=== PATIENT | female | born 1985 | race American Indian/Alaskan Native ===

== ENCOUNTER → 2021-12-18 00:47 | Outpatient (CLI) | payer BC, SELFPAY ==
[2021-12-18 12:03] LABS: SARS-CoV-2 RNA PCR Negative
== END ==
PROVIDERS: Anesthesiology; Visit Provider Obstetrics & Gynecology
DX: Z01.812 Encounter for preprocedural laboratory examination (principal); Z20.822 Contact with and (suspected) exposure to COVID-19
CPT/HCPCS: C9803; U0003; U0005

== ENCOUNTER 2021-12-21 01:18 | Day surgery (SDC) | payer BC, SELFPAY ==
[2021-12-17 16:56] VITALS: BMI 21.4
--- NOTE | 2021-12-17 17:05 | SUR.PREOP ---
Report to the Outpatient Waiting Room, entrance under the green pavilion located off [facility], at time __0930 on date 12/21/21_. OR Time: . - You and your visitor will be asked a series of questions to screen for COVID 19 for your protection. - A mask is required within the hospital. Preoperative COVID Testing Requirements: No COVID Test needed if: (proof is required; if not received patient will have Rapid Test prior to entry) - Patient has received COVID Vaccine at least 14 days prior to procedure date or - Patient has positive COVID test result within last 90 days of surgery date. COVID Test needed if above criteria is not met If not COVID vaccinated a COVID test must be conducted within 72 hours of surgery and patient is asked to isolate self from time of testing until procedure. You will go to the [facility] for your COVID testing. The [facility] site is located at the corner of [address] [facility]. You will only be called if COVID results are positive and your surgeon may reschedule your elective surgery date. Patients may have clear liquids (water, carbonated beverages, clear teas, apple juice) until 3 hours prior to surgery with a maximum of 20 ounces. - No food from midnight until time of surgery - Infants may have breast milk until 4 hours before surgery, formula 6 hours prior to surgery. - Children will be allowed to drink immediately following surgery. If applicable, please bring a bottle or sippy cup to assist with drinking. Juice, water, soda, and popsicles are readily available. For infants on formula, please bring formula the day of surgery. Pacifiers are allowed. Take the following medications with a SIP of water the morning of surgery: ___n/a Medications to discontinue per physician ____hold vitamins 3 days prior Date to take last dose Please no make-up, nail sao tomean, hairspray, perfume, deodorant, or body powder the day of surgery. No jewelry (including any body piercings) or valuables the day of surgery, leave them at home. Please take a shower or bath the night before, or the morning of, surgery with an antibacterial soap. Wear comfortable, loose fitting clothing. Children are encouraged to wear pajamas. - Jewelry must be removed prior to entering the operating room. Rings and piercings that are not removed may be cut off. - The hospital will not accept responsibility for valuables. - Please leave all valuables, including medications, at home the day of surgery. If you are going home after surgery, a licensed milk pickup truck driver must drive you home. - NO public transportation without another adult. - We recommend that an adult stay with you for 24 hours following discharge. - We also recommend that you do not drive, make important decision, drink alcoholic beverages, or take any drugs that were not prescribed by your health care provider for at least 24 hours after your discharge time. For Pediatric surgeries, we recommend two adults accompany the child home (only one inside the building at this time). One visitor will be allowed to accompany the patient into the hospital. Patients visitor will be instructed to remain with patient at all times or leave the building. We will allow the visitor to come back to the postoperative area when patient is ready. Follow any additional instructions given to you from your surgeon. Telephone instructions given to _patient and asked if any additional questions and then verbalized understanding. Patient advised to call surgeon office or pre surgery nurse liaison [phone] if any additional questions.
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
--- NOTE | 2021-12-20 13:05 | WPDANESEPPF ---
Anes - Initial Pre Proc Eval Procedure: Operation Date: 12/21/21 11:30 Proposed Procedures p Suction Dilation and Curettage - Romie Stephenson MD Date/Time: 12/20/21 13:05 Surgeon: Romie tSephenson MD Pre Op Diagnosis: Retained Product Patient Data Age: 36 Gender: F Height: 1.65 m Weight: 58.51 kg Allergies Allergy/AdvReac Type Severity Reaction Status Date / Time No Known Allergies Allergy Verified 12/21/21 09:49 Home Medications Medication Instructions Recorded Confirmed Type calcium carbonate-vitamin D3 1 tablet PO DAILY 12/17/21 12/21/21 History [Calcium with Vitamin D] vitamin B complex [B 1 tablet PO DAILY 12/17/21 12/21/21 History Complex-Vitamin B12] hydrocodone-acetaminophen 1 tablet PO Q4H PRN #20 tablet 12/21/21 Rx Patient hx anesthesia problems: none Family hx anesthesia problems: none Results Review: All pre-operative results and documents have been reviewed as part of the pre-operative evaluation. [facility] Social History Social History Smoking status: Never smoker Substance use type: does not use Living arrangements: with family Anes - Eval Final PreProcedure Day of Procedure 12/20/21 13:05 Patient weight: normal Heart: regular rate and rhythm Lungs: clear to auscultation and normal air movement Airway: Mallampati scale class 1 Neurological: alert and oriented Last oral intake: >/= 8 hours ASA classification: I Emergent: no Anesthetic plan: proceed Anesthesia type and monitoring: general GIVS and standard monitoring Results Review: All pre-operative results and documents have been reviewed as part of the pre-operative evaluation. Informed Consent: The patient's anesthetic plan and its attendant risks and benefits were discussed with the patient/family/POA. Questions were solicited and answers provided to the satisfaction of the patient/family/POA.
--- NOTE | 2021-12-21 07:23 | WPDHPUPDATE1 ---
History and Physical Update Update Date/Time: 12/21/21 07:23 History and Physical has been reviewed, including an updated exam of the patient. There are NO changes in the patient's condition. Risks, benefits, and alternatives have been discussed and questions answered. Patient agrees to proceed with procedure.
[2021-12-21 09:58] VITALS: BP 106/70; PULSE 72; RESP 16; TEMP 36.8; O2SAT 100
[2021-12-21] MEDS: ACETAMINOPHEN 500 MG TABLET 1000 MG PO (10:02)
[2021-12-21] MEDS: LACTATED RINGERS 1,000 ML 30 ML IV CONT (10:13)
[2021-12-21] MEDS: KETOROLAC 30 MG/ML VIAL (*BKC) IV PUSH (11:45)
[2021-12-21] MEDS: LIDOCAINE HCL 1% PF 30 ML VIAL 10 ML INFILTRATE (11:46)
--- NOTE | 2021-12-21 11:50 | W.PM.PROC2 ---
Procedure Note - Detailed Date of Procedure 12/21/21 Pre-op Diagnosis Retained Product Post-op Diagnosis Same Procedure Performed Suction dilatation curettage Surgeon Romie Stephenson MD Anesthesia MAC and Local Indications This is a 36-year-old with first-trimester incomplete AV Findings Uterus sounded to 10cm. Tissue consistent with retained products of conception were noted Description of Procedure Patient was prepped draped in the normal sterile fashion placed in the dorsal lithotomy position. Under excellent IV sedation weighted speculum placed in posterior fornix vagina. Anterior lip of the cervix grasped with single-tooth 2.5cc of% xylocaine anesthesia placed at 2, 4, 8, 10:00 a.m. of the cervix. The uterus sounded to 10cm. Serial dilatation with fragmented dilators performed followed by passage of the 9. Suction curette removing a moderate amount of chunky tissue. When a good grating sound was heard, no further tissue could be removed. The instruments removed and accounted for. The patient was awakened and went to recovery in satisfactory condition. All sponge, needle, instrument counts were correct. There were no immediate complications noted Estimated Blood Loss 25 Drains No Packing No Pathology Yes Complications No immediate complications Condition Stable Disposition PACU
[2021-12-21 11:52] VITALS: BP 82/41; PULSE 58; RESP 12; O2SAT 95
[2021-12-21 12:20] VITALS: BP 87/58; PULSE 47; RESP 16; O2SAT 100
[2021-12-21 12:50] VITALS: BP 104/59; PULSE 49; RESP 16
[2021-12-21] MEDS: oxyCODONE HCL (*CRX) 5 MG TAB IR PO (13:02)
== END 2021-12-21 13:00 | disposition home or self-care (01) ==
PROVIDERS: Visit Provider Obstetrics & Gynecology
PROC: (CPT 59812; principal; 2021-12-21 11:30)
DX: O03.4 Incomplete spontaneous abortion without complication (principal)
CPT/HCPCS: 59812; 88305; A9270; J1100; J1885; J2250; J2405; J2704; J3010; J7120

== ENCOUNTER 2023-08-20 08:54 | Inpatient (IN) | payer BC, SELFPAY ==
[2023-08-20] VITALS (198 sets, daily range): BP systolic 90–135; BP diastolic 54–86; PULSE 66–121; RESP 16–18; TEMP 36.3–36.8; O2SAT 95–100; BMI 26.4
--- NOTE | 2023-08-20 08:47 | PM.IMHP ---
H&P: HPI History of Present Illness Date/Time: 08/20/23 08:47 Chief Complaint: Induction of labor at term Narrative: this is a 38-year-old 4 para 0030 whose last menstrual period was 11/18/2022, EDC is 08/23/2023, confirmed an week ultrasound who presents at 39 weeks gestation for induction of labor. She has history of poor outcome with 3 previous miscarriages this appears to be uncomplicated short of an abnormal 1hour diabetic test with the 3hour [facility] Family History Family History Mother Diabetes mellitus Chronic obstructive pulmonary disease Social History Social History Smoking status: Never smoker Substance use: never Substance use type: does not use Living arrangements: with family Spiritual care concerns: Yes (no blood) Meds Home Medications and Allergies Home Medications Medication Instructions Recorded Confirmed Type vits no.126-ferrous fum 1 tablet PO DAILY 07/29/23 07/29/23 History 28 mg iron-folic acid 800 mcg tablet (Classic ) Allergies Allergy/AdvReac Type Severity Reaction Status Date / Time No Known Allergies Allergy Verified 07/29/23 15:20 Exam Const: General: cooperative, healthy appearing and comfortable Nutritional Appearance: average body habitus Orientation/consciousness: oriented to person, oriented to place and oriented to time Resp: Effort & Inspection: normal respiratory effort Cardio: Rate: regular rate Rhythm: regular rhythm Heart sounds: S1 normal heart sound present and S2 normal heart sound present GI: Inspection: normal to inspection ( gravid soft uterus) : External Female Exam: normal external appearance Speculum Exam - Vagina: normal appearance of the vagina Speculum Exam - Cervix: normal appearance of the cervix ( 2/50%/ -2) Assessment and Plan Assessment and plan (1) Term : Code(s): Z34.90 - Encounter for supervision of normal , unspecified, unspecified trimester Status: Acute (2) History of poor outcome: Code(s): Z87.59 - Personal history of other complications of , childbirth and the puerperium Status: Acute Plan medical induction of labor. Spontaneous vaginal delivery is expected. She is an epidural candidate
[2023-08-20 09:28] LABS: Basophils Absolute Auto 0.1 K/mm3 (0.0-0.1); Basophils Percent Auto 0.4 % (0.2-1.2); Eosinophils Absolute Auto 0.2 K/mm3 (0-0.3); Eosinophils Percent Auto 1.8 % (0-4.4); Hematocrit 33.5 % (37.0-47.0); Hemoglobin 10.7 g/dL (12.0-15.0); Immature Granulocyte Absolute 0.25 K/mm3 (0.00-0.031); Lymphocytes Absolute Auto 1.96 K/mm3 (0.9-3.2); Lymphocytes Percent Auto 15.8 % (18.3-44.2); Mean Corpuscular HGB Conc 31.9 g/dl (32-36); Mean Corpuscular Hemoglobin 28.9 pg (26-34); Mean Corpuscular Volume 90.5 fl (80-100); Mean Platelet Volume 10.8 fl (7.4-10.4); Monocytes Percent Auto 7.7 % (2.6-8.5); Neutrophils Percent Auto 72.3 % (45.5-73.1); Platelet Count Result 238 k/mm3 (150-375); Red Cell Distribution Width 13.2 % (11.5-14.5); White Blood Count 12.4 K/mm3 (4.5-10.0)
[2023-08-20] MEDS: LACTATED RINGERS 1,000 ML 125 ML IV CONT ×3 (09:53→23:00)
[2023-08-20] MEDS: OXYTOCIN 30 UNITS/NS 500 ML 30 UNITS/500 ML BAG 6 UNITS IV CONT (09:53)
--- NOTE | 2023-08-20 09:53 | LDADM ---
This patient, Anthony Quintanilla, was admitted to Labor/Delivery/Recovery 107 on 08/20/23 at 08:54. Plans for labor, pain management and were discussed with patient. Patient/family oriented to hospital policies and general routines including ID bracelet, bed and alarms, visiting hours, pain management, procedures, bathroom and other care routines, personal items, smoking policy, room service/diet and guest tray routines, infant security routines, and visiting hours. Patient/Family are encouraged to report perceived risks to care and to ask questions if they do not understand what they are told or what they should do. See [facility]BIX for further documentation.
[2023-08-20 12:09] LABS: Rapid Plasma Reagin Non-Reactive (NonReactive)
--- NOTE | 2023-08-20 14:09 | WPDANESEPP ---
Anes - Eval Pre Procedure Procedure: Labor Epidural Date/Time: 08/20/23 14:09 Surgeon: Gian Preop Diagnosis: Labor Pain Pre Op Diagnosis: IOL Patient Data Age: 38 Gender: F Height: 1.65 m Weight: 72.2 kg Last Vital Signs Temp 36.4 C 08/20/23 13:02 Pulse 87 08/20/23 14:00 Resp 16 08/20/23 13:02 BP 115/66 08/20/23 14:00 Pulse Ox 100 08/20/23 14:06 O2 Del Method Room Air 08/20/23 09:53 Allergies Allergy/AdvReac Type Severity Reaction Status Date / Time No Known Allergies Allergy Verified 08/20/23 09:27 Home Medications Medication Instructions Recorded Confirmed Type vits no.126-ferrous fum 1 tablet PO DAILY 07/29/23 08/20/23 History 28 mg iron-folic acid 800 mcg tablet (Classic ) Laboratory Tests 08/20/23 09:15 WBC 12.4 H K/mm3 (4.5-10.0) RBC 3.70 L M/mm3 (4.2-5.4) Hgb 10.7 L g/dL (12.0-15.0) Hct 33.5 L % (37.0-47.0) MCV 90.5 fl (80-100) MCH 28.9 pg (26-34) MCHC 31.9 L g/dl (32-36) RDW 13.2 % (11.5-14.5) Plt Count 238 k/mm3 (150-375) MPV 10.8 H fl (7.4-10.4) Immature Gran % (Auto) 2.0 H % (0-0.5) Neut % (Auto) 72.3 % (45.5-73.1) Lymph % (Auto) 15.8 L % (18.3-44.2) [place] % (Auto) 7.7 % (2.6-8.5) Eos % (Auto) 1.8 % (0-4.4) Baso % (Auto) 0.4 % (0.2-1.2) Lymph # (Auto) 1.96 K/mm3 (0.9-3.2) [place] # (Auto) 1.0 H K/mm3 (0.1-0.6) Eos # (Auto) 0.2 K/mm3 (0-0.3) Baso # (Auto) 0.1 K/mm3 (0.0-0.1) Abs Immat Gran (auto) 0.25 H K/mm3 (0.00-0.031) Absolute Neuts (auto) 9.0 H K/mm3 (1.3-6.7) Absolute Nucleated RBC 0.0 K/mm3 (0.0-0.012) Nucleated RBC % 0.0 % (0.0-0.2) RPR Non-reactive (NonReactive) Blood Type A Positive Antibody Screen Negative Patient hx anesthesia problems: none Family hx anesthesia problems: none Results Review: All pre-operative results and documents have been reviewed as part of the pre-operative evaluation. [facility] Family History Family History Mother Diabetes mellitus Chronic obstructive pulmonary disease Social History Social History Smoking status: Never smoker Second hand tobacco smoke exposure: No Substance use: never Substance use type: does not use Do You Feel Safe in your Home?: Yes Lack of Transportation: No Lack of Food: Never True Current Housing: I Have Housing Concerned About Future Housing: No Difficulty Paying Gas/Electric Bills: No Difficulty Paying for Meds: No Currently Unemployed: No Education: High School Diploma/GED Difficulty w/ Childcare or Family Care: No Living arrangements: with family Spiritual care concerns: Yes (no blood) Exam Day of Procedure 08/20/23 14:09 Patient weight: normal Heart: regular rate and rhythm Lungs: normal air movement Airway: Mallampati scale Neurological: alert and oriented
--- NOTE | 2023-08-20 16:19 | PM.OBPNLAB ---
Pain Control Date/time seen: 08/20/23 16:19 Pain control: tolerating well and epidural Pelvic Exam Dilation (cm): 4 station: -1 Amniotic membrane status: Leaking Contractions Monitor mode: External
[2023-08-21] VITALS (59 sets, daily range): BP systolic 87–123; BP diastolic 52–94; PULSE 78–136; RESP 16–18; TEMP 36.6–37.7; O2SAT 97–100
[2023-08-21] MEDS: diphenhydrAMINE HCl INJ 50 MG/ML VIAL 25 MG IV PUSH (00:22)
--- NOTE | 2023-08-21 02:17 | PM.OBPRVD ---
OB - Vaginal Delivery Note Procedure Delivery date: 08/21/23 Events: Elective Induction of Labor Induction method: AROM Delivery augmentation: Pitocin Delivery monitor: External FHT and Internal FHT Route of delivery: Episiotomy description: None Laceration Description: None Quantitative Blood Loss (ml): 61 Anesthesia type: Epidural Disposition: Floor [place] Baby Date of : 08/21/23 Time of : 02:04 Weeks of gestation at delivery: 39 Infant gender: Female presentation: vertex position: Right Occiput Anterior Placenta delivery description: Spontaneous Cord Vessel Description: 3 Vessels, Nuchal Cord, Loose and Reduced score one minute: 8 score five minutes: 9
[2023-08-21] MEDS: METHYLERGONOVINE MALEATE 0.2 MG/ML VIAL IM (02:18)
--- NOTE | 2023-08-21 02:19 | P.DS_ITS ---
DS: Admitting Diagnosis Discharge Date 08/22/2023 Admitting Diagnosis Term DS: Discharge Diagnosis Discharge Diagnosis (1) History of poor outcome: Code(s): Z87.59 - Personal history of other complications of , childbirth and the puerperium Status: Acute (2) Term : Code(s): Z34.90 - Encounter for supervision of normal , unspecified, unspecified trimester Status: Acute DS: Summary Hospital Course Reason for hospitalization: patient was admitted for induction of labor 12/19/2022 Hospital Course: patient was successful spontaneous vaginal delivery at 2:04 a.m. on 08/21/2023. Her hospital course was unremarkable. She remained afebrile. She was up, voiding without difficulty, eating a diet, ambulating, generally without complaints. Time Spent with Patient Time attestation: Total time spent providing and/or coordinating discharge services: Exam Const: General: cooperative, healthy appearing and comfortable Nutritional Appearance: average body habitus Orientation/consciousness: oriented to person, oriented to place and oriented to time HENMT: Head: normal to inspection Resp: Effort & Inspection: normal respiratory effort Cardio: Rate: regular rate Rhythm: regular rhythm Heart sounds: S1 normal heart sound present and S2 normal heart sound present GI: Inspection: normal to inspection DS: Data Data Completed and Pending Labs on day of discharge: Labs from last 24 hours 08/20/23 09:15 WBC 12.4 H RBC 3.70 L Hgb 10.7 L Hct 33.5 L MCV 90.5 MCH 28.9 MCHC 31.9 L RDW 13.2 Plt Count 238 MPV 10.8 H Immature Gran % (Auto) 2.0 H Neut % (Auto) 72.3 Lymph % (Auto) 15.8 L [place] % (Auto) 7.7 Eos % (Auto) 1.8 Baso % (Auto) 0.4 Lymph # (Auto) 1.96 [place] # (Auto) 1.0 H Eos # (Auto) 0.2 Baso # (Auto) 0.1 Abs Immat Gran (auto) 0.25 H Absolute Neuts (auto) 9.0 H Absolute Nucleated RBC 0.0 Nucleated RBC % 0.0 RPR Non-reactive Blood Type A Positive Antibody Screen Negative Discharge Plan Discharge Attending physician on discharge: Romie Pemberton Discharging Clinician: Romie Pemberton Patient Disposition: Home, Self-Care Activity: may shower and pelvic rest Diet: heart healthy Wound Care Instructions: follow printed instructions Patient Instructions: Antibiotic Form Stand Alone Forms: General Discharge Information Follow-up/Referrals: Romie Pemberton MD [Physician] - Discharge Medications: Continued Classic 28 mg iron- 800 mcg Tablet 1 tablet PO DAILY Date of admission: 08/20/23 08:54 Primary Care Provider: PHYSICIAN,[employer] [facility] Admitting Provider: Romie Pemberton Attending physician on admission: Romie Pemberton Condition: Stable
[2023-08-21] MEDS: miSOPROStol 200 MCG TABLET 800 MCG RECTAL (03:08)
[2023-08-21] MEDS: ACETAMINOPHEN 325 MG TABLET 650 MG PO (04:35)
[2023-08-21] MEDS: IBUPROFEN 600 MG TABLET PO ×3 (04:36→16:51)
[2023-08-21] MEDS: POLYSACCHARIDE IRON COMPLEX 150 MG CAPSULE PO ×2 (09:34→16:52)
[2023-08-21] MEDS: DOCUSATE SODIUM 100 MG CAPSULE PO ×2 (09:34→16:52)
--- NOTE | 2023-08-21 11:59 | PC.NURSE ---
Pt's second bag of Pitocin (500mls) @ 125 ml/hr finished @ 0745 and the patient was saline locked.
[2023-08-22] VITALS: BP 116/70; PULSE 97; RESP 18; TEMP 36.5; O2SAT 99
[2023-08-22] MEDS: IBUPROFEN 600 MG TABLET PO ×3 (00:31→15:02)
[2023-08-22 04:12] LABS: Hemoglobin 8.4 g/dL (12.0-15.0)
--- NOTE | 2023-08-22 07:02 | PM.OBPNVD ---
OB - PN: Subj Subjective Date/time seen: 08/22/23 07:02 Patient comments: no complaints and pain well controlled baby status: doing well and bottle feeding well OB - PN: Obj Data Labs 08/22/23 03:25 Labs: Laboratory Results - last 24 hr 08/22/23 03:25 Hgb 8.4 L Hct 27.0 L OB - PN A/P Plan day: 1 Plan: routine care, discharge home and follow up 6 weeks Time Spent With Patient Time: Total time spent is greater than 50% in coordination of care (as documented) at patient's floor/unit and/or counseling patient: Time with patient: less than 15 minutes Exam Const: General: cooperative, healthy appearing and comfortable Nutritional Appearance: average body habitus Orientation/consciousness: oriented to person, oriented to place and oriented to time Resp: Effort & Inspection: normal respiratory effort Cardio: Rate: regular rate Rhythm: regular rhythm Heart sounds: S1 normal heart sound present and S2 normal heart sound present GI: Inspection: normal to inspection
[2023-08-22] MEDS: DOCUSATE SODIUM 100 MG CAPSULE PO (07:33)
[2023-08-22] MEDS: POLYSACCHARIDE IRON COMPLEX 150 MG CAPSULE PO (07:33)
[2023-08-22 07:55] VITALS: BP 108/72; PULSE 78; RESP 16; TEMP 36.7; O2SAT 100
--- NOTE | 2023-08-22 10:54 | WPDANLDPN2 ---
Anes-Prog Note L&D Date/Time: 08/22/23 10:54 Comfortable throughout: labor and delivery Neuraxial method: epidural Epidural/Spinal procedure site: clean & non-tender Neuro status: Neuro function grossly intact. Cardiovascular status: normal Respiratory status: normal Airway patency: baseline Mental status: baseline Post-Op hydration status: normal Vital Signs: Last Vital Signs Temp 98.1 F 08/22/23 07:55 Pulse 78 08/22/23 07:55 Resp 16 08/22/23 07:55 BP 108/72 08/22/23 07:55 Pulse Ox 100 08/22/23 07:55 O2 Del Method Room Air 08/20/23 09:53 Pain score (VAS): 0/10 Post-procedural complaints: none Patient feedback: Patient satisfied with anesthetic care.
--- NOTE | 2023-08-22 15:04 | PC.NURSE ---
Patient viewed the discharge video Mother & Baby Care, The First Two Weeks . Patient was given the opportunity and encouraged to ask questions. Patient verbalized understanding of information shared and has been given the mother/baby guide for home reference.
[2023-08-23 11:24] VITALS: BP 113/76; PULSE 84; RESP 18; TEMP 36.6; O2SAT 99
== END 2023-08-22 15:55 | disposition home or self-care (01) | DRG 807 ==
LOC: ANHLDR 08-21 02:21 → ANHOB2 08-21 05:15
PROVIDERS: Admitting Provider Obstetrics & Gynecology; Visit Provider Obstetrics & Gynecology
DX: O99.892 Other specified diseases and conditions complicating childbirth (principal); Z37.0 Single live birth; Z3A.39 39 weeks gestation of pregnancy; Z87.59 Personal history of other complications of pregnancy, childbirth and the puerperium; O69.81X0 Labor and delivery complicated by cord around neck, without compression, not applicable or unspecified
CPT/HCPCS: 36415; 85014; 85018; 85025; 86592; 86850; 86900; 86901; A9270; J1200; J2210; J2590; J2795; J7120

== ENCOUNTER 2023-09-02 12:10 | Outpatient (CLI) | payer BC, SELFPAY ==
--- NOTE | ~2023-09-02 | US_ITS ---
US pelvic complete DATE: 09/02/2023 13:01 INDICATION: Retained products of conception. Delivery 08/21/2023. TECHNIQUE: Real-time and color flow imaging via transabdominal approach COMPARISON: None FINDINGS: There is measures approximately 14.3 cm height, 5.7 cm AP and 9.4 cm transverse dimension. There is prominent fluid and soft tissue density within the endometrial cavity, the central endometri al echo measuring up to 1.7 cm AP dimension. No abnormal vascularity of the endometrium is noted. No ovarian or adnexal mass lesion is evident. There is vascular flow to both ovaries. No abnormal day e pelvic fluid collection is identified. IMPRESSION: Fluid and soft tissue echoes throughout the endometrial cavity, measuring up to 1.7 cm AP dimension, without abnormal increased vascularity of the endometrium, likely due to retained product s of conception Reviewed, dictated and finalized at [facility]. Reviewed, dictated and finalized at location [facility]. [facility]OP[facility]MI[facility] IMPRESSION: Fluid and soft tissue echoes throughout the endometrial cavity, kennedy suring up to 1.7 cm AP dimension, without abnormal increased vascularity of the endometrium, likely due to retained products of conception
[2023-09-02 15:04] LABS: Basophils Absolute Auto 0.1 K/mm3 (0.0-0.1); Basophils Percent Auto 0.6 % (0.2-1.2); Eosinophils Absolute Auto 0.3 K/mm3 (0-0.3); Eosinophils Percent Auto 3.6 % (0-4.4); Hemoglobin 12.1 g/dL (12.0-15.0); Immature Granulocyte Absolute 0.04 K/mm3 (0.00-0.031); Immature Granulocyte Percent A 0.4 % (0-0.5); Lymphocytes Absolute Auto 2.23 K/mm3 (0.9-3.2); Lymphocytes Percent Auto 24.1 % (18.3-44.2); Mean Corpuscular HGB Conc 30.3 g/dl (32-36); Mean Corpuscular Hemoglobin 27.8 pg (26-34); Mean Corpuscular Volume 91.7 fl (80-100); Mean Platelet Volume 10.2 fl (7.4-10.4); Monocytes Absolute Auto 0.3 K/mm3 (0.1-0.6); Monocytes Percent Auto 3.2 % (2.6-8.5); Neutrophils Absolute Auto 6.3 K/mm3 (1.3-6.7); Neutrophils Percent Auto 68.1 % (45.5-73.1); Platelet Count Result 406 k/mm3 (150-375); Red Blood Count 4.36 M/mm3 (4.2-5.4); Red Cell Distribution Width 13.5 % (11.5-14.5); White Blood Count 9.3 K/mm3 (4.5-10.0)
== END 2023-09-02 12:11 | disposition home or self-care (01) ==
PROVIDERS: Visit Provider Obstetrics & Gynecology
DX: O72.2 Delayed and secondary postpartum hemorrhage (principal)
CPT/HCPCS: 36415; 76856; 85025

== ENCOUNTER 2023-09-04 01:42 | Day surgery (SDC) | payer BC, SELFPAY ==
--- NOTE | 2023-09-03 06:53 | PM.IMHP ---
H&P: HPI History of Present Illness Date/Time: 09/03/23 06:53 Chief Complaint: bleeding 2 weeks after delivery Narrative: This is a pleasant 38-year-old female delivered vaginally approximately 2 weeks ago. She is passing clots bleeding. Ultrasound appears to retained placenta she is admitted for suction dilatation curettage. Risks and benefits reviewed including exclusive aspiration bleeding, transfusion perforation injury to bowel, bladder, ureters, or other internal organs with need for laparotomy. She had all questions answered is to proceed [facility] Family History Family History Mother Diabetes mellitus Chronic obstructive pulmonary disease Social History Social History Smoking status: Never smoker Second hand tobacco smoke exposure: No Substance use: never Substance use type: does not use Do You Feel Safe in your Home?: Yes Lack of Transportation: No Lack of Food: Never True Current Housing: I Have Housing Concerned About Future Housing: No Difficulty Paying Gas/Electric Bills: No Difficulty Paying for Meds: No Currently Unemployed: No Education: High School Diploma/GED Difficulty w/ Childcare or Family Care: No Living arrangements: with family Spiritual care concerns: Yes (no blood) Meds Home Medications and Allergies Home Medications Medication Instructions Recorded Confirmed Type vits no.126-ferrous fum 1 tablet PO DAILY 07/29/23 08/20/23 History 28 mg iron-folic acid 800 mcg tablet (Classic ) Allergies Allergy/AdvReac Type Severity Reaction Status Date / Time No Known Allergies Allergy Verified 08/20/23 09:27 Exam Const: General: cooperative, healthy appearing and comfortable Nutritional Appearance: average body habitus Orientation/consciousness: oriented to person, oriented to place and oriented to time Resp: Effort & Inspection: normal respiratory effort Cardio: Rate: regular rate Rhythm: regular rhythm Heart sounds: S1 normal heart sound present and S2 normal heart sound present GI: Inspection: normal to inspection : External Female Exam: normal external appearance Speculum Exam - Vagina: normal appearance of the vagina and vaginal bleeding Speculum Exam - Cervix: Cervical os open Bimanual exam- vagina & uterus: enlarged Bimanual Exam- Adnexa, other: normal adnexae Assessment and Plan Assessment and plan (1) bleeding: Code(s): O72.1 - Other immediate hemorrhage Status: Acute Plan Suction dilatation curettage
--- NOTE | 2023-09-03 09:33 | SUR.PREOP ---
Report to the Outpatient Waiting Room, entrance under the green pavilion located off [facility], at time 0600 on date 09/03/23. Planned Procedure Time: 0730. Time changes happen often and if your time is changed the preop area will call you the afternoon before. - You and your visitor will be asked to self-screen and do not enter if you have any COVID symptoms. - A mask is optional within the hospital at this time. Patients may have clear liquids (water, carbonated beverages, clear teas, apple juice) until 3 hours prior to surgery with a maximum of 20 ounces. - NO CLEAR LIQUIDS AFTER 0430 - No food from midnight until time of surgery - Infants may have breast milk until 4 hours before surgery, infant formula 6 hours prior to surgery. - Children will be allowed to drink immediately following surgery. If applicable, please bring a bottle or sippy cup to assist with drinking. Juice, water, soda, and popsicles are readily available. For infants on formula, please bring formula the day of surgery. Pacifiers are allowed. Take the following medications with a SIP of water the morning of surgery: N/A DO NOT STOP ANY OF YOUR OTHER PRESCRIPTION MEDICATIONS PRIOR TO SURGERY ?EXCEPT THE FOLLOWING Medications to discontinue per physician N/A Date to take last dose Please no make-up, nail iranian, hairspray, perfume, deodorant, or body powder the day of surgery. No jewelry (including any body piercings) or valuables the day of surgery, leave them at home. Please take a shower or bath the night before, or the morning of, surgery with an antibacterial soap. Wear comfortable, loose fitting clothing. Children are encouraged to wear pajamas. - Jewelry must be removed prior to entering the operating room. Rings and piercings that are not removed may be cut off. - The hospital will not accept responsibility for valuables. - Please leave all valuables, including medications, at home the day of surgery. If you are going home after surgery, a licensed airport driver must drive you home. - NO public transportation without another adult if you receive anesthesia. - We recommend that an adult stay with you for 24 hours following discharge. - We also recommend that you do not drive, make important decision, drink alcoholic beverages, or take any drugs that were not prescribed by your health care provider for at least 24 hours after your discharge time. For Pediatric surgeries, we recommend two adults accompany the child home. Follow any additional instructions given to you from your surgeon. If you or anyone in your household have experienced Covid symptoms in the past week, please notify your surgeon or the nurse liaison at the phone number below for possible testing. Telephone instructions given to HARIKA CASTAÑEDA and asked if any additional questions and then verbalized understanding. Patient advised to call surgeon office or pre surgery nurse liaison [phone] if any additional questions.
[2023-09-03 09:41] VITALS: BMI 22.8
[2023-09-04] VITALS (18 sets, daily range): BP systolic 88–136; BP diastolic 50–86; PULSE 50–89; RESP 12–22; TEMP 36.1–36.6; O2SAT 99–100
--- NOTE | ~2023-09-04 | US_ITS ---
EXAMINATION: US pelvic complete DATE: 09/04/2023 11:54 INDICATION: Vaginal bleeding post D&C TECHNIQUE: Multiple transabdominal sonographic images of the pelvis were obtained. COMPARISON: 09/02/2023 FINDINGS: The uterus measures 14.8 x 8.4 x 10.0 cm. Significant interval increase in amount of diffusely echog enic material within the endometrial canal currently measuring 9.2 x 7.1 x 5.3 cm orthogonal dimensio ns. No evident internal vascular flow on color Doppler which along with the significant increase in v olume of material would favor clot over retained products of conception the vast majority of the mate rial although a small amount of residual retained product of conception cannot be excluded. For amanda perez the endometrial canal measures up to 1.5 cm maximal thickness at the time of the prior study at which time there was a combination of echogenic material and small amount of anechoic fluid. There a re few echogenic foci with shadowing along the anterior margin the endometrial canal which could repr esent calcifications and/or small amount of gas related to the intervening D&C. The ovaries are not v isualized. There is a small amount of anechoic free fluid posterior to the uterus. IMPRESSION: 1. Interval development of a large amount of heterogeneous echogenic material within the uterus most consistent with clot although a small amount of residual retained products of conception cannot be ex cluded. 2. A few echogenic and shadowing foci in the anterior endometrial canal which could represent retaine d products of conception or small amount of gas related to the intervening D&C. Reviewed, dictated and finalized at location A. [facility] IMPRESSION: 1. Interval development of a large amount of heterogeneous echogenic material w ithin the uterus most consistent with clot although a small amount of residual retained products of conception cannot be excluded. 2. A few echogenic and shadowing foci in the anterior endometrial canal which c ould represent retained products of conception or small amount of gas related t o the intervening D&C.
[2023-09-04] MEDS: LACTATED RINGERS 1,000 ML 30 ML IV CONT ×4 (06:35→13:50)
[2023-09-04] MEDS: ACETAMINOPHEN 500 MG TABLET 1000 MG PO (06:37)
--- NOTE | 2023-09-04 06:42 | WPDHPUPDATE1 ---
History and Physical Update Update Date/Time: 09/04/23 06:42 History and Physical has been reviewed, including an updated exam of the patient. There are NO changes in the patient's condition. Risks, benefits, and alternatives have been discussed and questions answered. Patient agrees to proceed with procedure.
--- NOTE | 2023-09-04 07:12 | WPDANESEPPF ---
Anes - Initial Pre Proc Eval Procedure: Operation Date: 09/04/23 07:30 Proposed Procedures p Suction Dilation and Curettage - Romie Stephenson MD Date/Time: 09/04/23 07:12 Surgeon: Romie Stephenson MD Pre Op Diagnosis: retained products Patient Data Age: 38 Gender: F Height: 1.65 m Weight: 62.4 kg Last Vital Signs Temp 97.0 F L 09/04/23 06:27 Pulse 65 09/04/23 06:27 Resp 18 09/04/23 06:27 BP 136/86 09/04/23 06:27 Pulse Ox 100 09/04/23 06:27 O2 Del Method Room Air 09/04/23 06:27 Allergies Allergy/AdvReac Type Severity Reaction Status Date / Time No Known Allergies Allergy Verified 09/04/23 07:07 Home Medications Medication Instructions Recorded Confirmed Type vits no.126-ferrous fum 1 tablet PO DAILY 07/29/23 09/03/23 History 28 mg iron-folic acid 800 mcg tablet (Classic ) pseudoephedrine HCl 30 mg tablet 30 mg PO Q6-8H 09/03/23 09/03/23 History (Sudafed) hydrocodone 5 mg-acetaminophen 325 1 tablet PO Q4H PRN pain #10 tabs 09/04/23 Rx mg tablet hydrocodone 5 mg-acetaminophen 325 1 tablet PO Q4H PRN pain #10 tabs 09/04/23 Rx mg tablet Patient hx anesthesia problems: none Family hx anesthesia problems: none Results Review: All pre-operative results and documents have been reviewed as part of the pre-operative evaluation. [facility] Family History Family History Mother Diabetes mellitus Chronic obstructive pulmonary disease Social History Social History Smoking status: Never smoker Second hand tobacco smoke exposure: No Substance use: never Substance use type: does not use Do You Feel Safe in your Home?: Yes Lack of Transportation: No Lack of Food: Never True Current Housing: I Have Housing Concerned About Future Housing: No Difficulty Paying Gas/Electric Bills: No Difficulty Paying for Meds: No Currently Unemployed: No Education: High School Diploma/GED Difficulty w/ Childcare or Family Care: No Living arrangements: with family Spiritual care concerns: No Anes - Eval Final PreProcedure Day of Procedure 09/04/23 07:12 Patient weight: normal Heart: regular rate and rhythm Lungs: clear to auscultation Airway: Mallampati scale class II Neurological: alert and oriented Last oral intake: >/= 8 hours ASA classification: II Emergent: no Anesthetic plan: proceed Anesthesia type and monitoring: general GIVS and standard monitoring Results Review: All pre-operative results and documents have been reviewed as part of the pre-operative evaluation. Informed Consent: The patient's anesthetic plan and its attendant risks and benefits were discussed with the patient/family/POA. Questions were solicited and answers provided to the satisfaction of the patient/family/POA.
[2023-09-04] MEDS: ceFAZolin SODIUM 1 GM VIAL IV PUSH ×2 (07:32→12:34)
[2023-09-04] MEDS: LIDOCAINE HCL 1% LOCAL INJ 20 ML VIAL 10 ML INFILTRATE (07:38)
[2023-09-04] MEDS: KETOROLAC 15 MG/ML VIAL (*BKC) IV PUSH (07:40)
--- NOTE | 2023-09-04 07:42 | W.PM.PROC2 ---
Procedure Note - Detailed Date of Procedure 09/04/23 Pre-op Diagnosis retained products Post-op Diagnosis Same Procedure Performed Suction dilatation curettage Surgeon Romie Stephenson MD Anesthesia MAC and Local Indications 38-year-old female 2 weeks delivery with suspected retained placenta Findings uterus sounded to tissue consistent with retained Description of Procedure patient was prepped and draped sterile fashion. SPECT placed in posterior anterior lip of the cervix grasped with a single-tooth. 2.5cc of% xylocaine anesthesia placed at 2:48 a.m., 10 cervix uterus sounded 9cm. Serial dilatation fragmented followed by passage of the 10. Suction. Moderate amount placental appearing tissue was removed. When a good grating sound was heard the instruments withdrawn. The patient went to recovery in satisfactory condition. All sponge, needle instrument were correct. there were no immediate Complications Estimated Blood Loss 25 Drains No Packing No Pathology Yes Complications No immediate complications Condition Stable Disposition PACU
--- NOTE | 2023-09-04 08:36 | SUR.PHASEII ---
Dr. Sandeep Stephenson notified of patient having vaginal bleeding with large clots. Orders received for IM methergine. Vital signs stable.
[2023-09-04] MEDS: fentaNYL CITRATE INJ (*CRX) 100 MCG/2 ML VIAL 25 MCG IV PUSH ×5 (08:45→14:11)
[2023-09-04] MEDS: METHYLERGONOVINE MALEATE 0.2 MG/ML VIAL IM ×3 (09:02→12:44)
--- NOTE | 2023-09-04 10:16 | SUR.PHASEII ---
Patient walked to the bathroom. Zenaida pad saturated in blood with golf ball size clot noted. While patient was sitting on toilet she passed clots [address] Sandeep Stephenson called and order received to repeat dose of 0.2 methergine IM.
--- NOTE | 2023-09-04 11:08 | SUR.PHASEII ---
Addendum entered by Heather Young RN 09/04/23 11:11: Patient made NPO at this time. Original Note: Dr. Johnson with anesthesia made aware of patient's post op vaginal bleeding/clots along with patient feeling dizzy and lightheaded. BP 95/67. Voicemail left for Dr. Flori Stephenson.
--- NOTE | 2023-09-04 11:14 | SUR.PHASEII ---
Dr. Sandeep Stephenson returned call. Orders received for H&H, LR bolus, and STAT pelvic ultrasound. Patient and updated.
[2023-09-04 11:36] LABS: Hematocrit 30.4 % (37.0-47.0); Hemoglobin 9.4 g/dL (12.0-15.0)
--- NOTE | 2023-09-04 11:36 | P.PNOB_ITS ---
DIRECTOR COMMUNITY ORGANIZATION - A/P Postoperative Procedures: Procedures Operation Date: 09/04/23 07:30 Actual Procedure Side Surgeon p Suction Dilation and Curettage Not Applicable Romie Stephenson MD Time Spent With Patient Time: Total time spent is greater than 50% in coordination of care (as documented) at patient's floor/unit and/or counseling patient: Time with patient: less than 15 minutes DIRECTOR COMMUNITY [employer]GANIZATION- PN:Subj Post-Op Subjective Date/time seen: 09/04/23 11:36 Interval history: passing a few clots. hemodynamically stable will check h/h and us DIRECTOR COMMUNITY ORGANIZATION - PN: Obj Data Vital Signs Vital Signs: Vital Signs - 24 hr 09/04/23 06:27 09/04/23 07:45 09/04/23 08:15 Temperature 97.0 F L Pulse Rate 65 54 L 50 L Respiratory Rate 18 14 18 Blood Pressure 136/86 88/50 L 101/61 Pulse Oximetry 100 100 100 Oxygen Delivery Room Air Simple Face Mask Room Air Oxygen Flow Rate 8 09/04/23 08:45 09/04/23 09:15 09/04/23 09:50 Temperature Pulse Rate 71 84 50 L Respiratory Rate 18 16 18 Blood Pressure 122/71 109/79 115/68 Pulse Oximetry Oxygen Delivery Room Air Room Air Room Air Oxygen Flow Rate 09/04/23 10:15 Temperature Pulse Rate 57 L Respiratory Rate 18 Blood Pressure 104/66 Pulse Oximetry Oxygen Delivery Room Air Oxygen Flow Rate Intake/Output Intake/Output: Intake & Output 09/01/23 09/02/23 09/03/23 09/04/23 23:59 23:59 23:59 23:59 Intake Total 800 Balance 800 Meds/Results Medications: Active Medications Generic Name Dose Route Start Last Admin Trade Name Freq PRN Reason Stop Dose Admin Fentanyl Citrate 25 mcg 09/03/23 10:23 09/04/23 09:05 Fentanyl Citrate Inj (*Crx) 100 Mcg/2 Ml Vial IV PUSH 25 mcg Q2M PRN Administration Pain Lactated Ringer's 1,000 mls @ 30 mls/hr 09/03/23 10:25 09/04/23 09:11 Lr - Lactated Ringers Iv IV CONT Infused .Q24H TUSHAR Infusion Lactated Ringer's 1,000 mls @ 30 mls/hr 09/03/23 10:25 09/04/23 09:12 Lr - Lactated Ringers Iv IV CONT 30 mls/hr .Q24H TUSHAR Administration Ondansetron HCl 4 mg 09/03/23 10:23 Ondansetron Inj 4 Mg/2 Ml Vial IV PUSH ONCE PRN Nausea Oxycodone HCl 5 mg 09/03/23 10:23 Oxycodone Hcl (*Crx) 5 Mg Tab Ir PO ONCE PRN Pain Labs 09/04/23 11:21
--- NOTE | 2023-09-04 11:37 | SUR.PHASEII ---
Dr. Sandeep Stephenson at bedside to assess patient and speak with family.
--- NOTE | 2023-09-04 12:23 | SUR.PHASEII ---
Patient taken to OR. Consent signed with patient, present. Blood refusal consent reviewed and signed with patient prior to surgery.
[2023-09-04] MEDS: TRANEXAMIC ACID 1,000 MG/10 ML AMPUL 1000 MG IV PUSH (12:29)
--- NOTE | 2023-09-04 12:50 | W.PM.PROC2 ---
Procedure Note - Detailed Date of Procedure 09/04/23 Pre-op Diagnosis retained products Post-op Diagnosis Same Procedure Performed Suction dilatation curettage Surgeon Romie Stephenson MD Anesthesia General Indications since 30-year-old female for a 2nd suction D&C she underwent an unremarkable 1st procedure with him postoperative bleeding. Ultrasound showed retained clot. She is admitted for second procedure. Findings Uterus sounded to 10cm. Proximally 400cc of clot were seen. Nothing that appeared to be tissue was present. Description of Procedure Patient was prepped draped in normal sterile fashion placed in dorsal lithotomy position. Under excellent general trach anesthesia weighted speculum placed post per STUDENT SPECIALIST. Anterior lip of cervix grasped with a single-tooth tenaculum. Uterus sounded to 10cm. Serial dilatation was performed and [id number] of the clot was removed from the uterus. A good grating sound was heard the patient was given a dose of TXA and Methergine. The uterus was palpated and appeared to shrink nicely and was watched for 10minutes with no bleeding. She will be watched closely with a 24hour stay due to her bleeding. Repeat H&H will be performed today all sponge, needle, instrument counts were correct. Estimated Blood Loss 400 Packing No Pathology Yes Complications No immediate complications Condition Stable Disposition PACU
[2023-09-04 16:22] LABS: Hematocrit 26.7 % (37.0-47.0); Hemoglobin 8.2 g/dL (12.0-15.0)
--- NOTE | 2023-09-04 16:26 | PM.GYNPNOP ---
ELECTRONIC WARFARE SPECIALIST - A/P Postoperative Procedures: Procedures Operation Date: 09/04/23 07:30 Actual Procedure Side Surgeon p Suction Dilation and Curettage Not Applicable Romie Stephenson MD Operation Date: 09/04/23 14:00 Actual Procedure Side Surgeon p Suction Dilatation and Curettage Romie Stephenson MD Postoperative day: 0 Postoperative status: doing well Postoperative plan: routine post-op care and other ( home with pelvic rest and bleeding precautions) Time Spent With Patient Time: Total time spent is greater than 50% in coordination of care (as documented) at patient's floor/unit and/or counseling patient: Time with patient: less than 15 minutes ELECTRONIC WARFARE SPECIALIST- PN:Subj Post-Op Subjective Date/time seen: 09/04/23 16:26 Interval history: passing a few clots. hemodynamically stable will check h/h and us Subjective: patient reports feeling better and other (Bleeding is slight) Exam Const: General: cooperative, healthy appearing and comfortable Nutritional Appearance: average body habitus Orientation/consciousness: oriented to person, oriented to place and oriented to time Resp: Effort & Inspection: normal respiratory effort : External Female Exam: normal external appearance Speculum Exam - Vagina: normal appearance of the vagina and vaginal bleeding ( vaginal bleeding is not heavy) ELECTRONIC WARFARE SPECIALIST - PN: Obj Data Vital Signs Vital Signs: Vital Signs - 24 hr 09/04/23 06:27 09/04/23 07:45 09/04/23 08:15 Temperature 97.0 F L Pulse Rate 65 54 L 50 L Respiratory Rate 18 14 18 Blood Pressure 136/86 88/50 L 101/61 Pulse Oximetry 100 100 100 Oxygen Delivery Room Air Simple Face Mask Room Air Oxygen Flow Rate 8 09/04/23 08:45 09/04/23 09:15 09/04/23 09:50 Temperature Pulse Rate 71 84 50 L Respiratory Rate 18 16 18 Blood Pressure 122/71 109/79 115/68 Pulse Oximetry Oxygen Delivery Room Air Room Air Room Air Oxygen Flow Rate 09/04/23 10:15 09/04/23 10:45 09/04/23 11:15 Temperature Pulse Rate 57 L 78 61 Respiratory Rate 18 16 16 Blood Pressure 104/66 106/77 94/56 L Pulse Oximetry 99 Oxygen Delivery Room Air Room Air Room Air Oxygen Flow Rate 09/04/23 11:45 09/04/23 12:15 09/04/23 12:55 Temperature 97.6 F Pulse Rate 67 68 74 Respiratory Rate 16 16 14 Blood Pressure 95/67 L 118/62 120/67 Pulse Oximetry 99 100 Oxygen Delivery Room Air Room Air Simple Face Mask Oxygen Flow Rate 10 09/04/23 13:10 09/04/23 13:25 09/04/23 13:40 Temperature Pulse Rate 89 70 75 Respiratory Rate 16 16 22 H Blood Pressure 108/64 103/67 105/72 Pulse Oximetry 100 99 99 Oxygen Delivery Simple Face Mask Room Air Room Air Oxygen Flow Rate 8 09/04/23 13:55 09/04/23 14:10 09/04/23 14:30 Temperature 97.8 F Pulse Rate 70 85 78 Respiratory Rate 14 12 16 Blood Pressure 108/72 105/60 107/59 L Pulse Oximetry 99 99 100 Oxygen Delivery Room Air Room Air Oxygen Flow Rate 09/04/23 14:30 Temperature Pulse Rate Respiratory Rate Blood Pressure Pulse Oximetry Oxygen Delivery Room Air Oxygen Flow Rate Intake/Output Intake/Output: Intake & Output 09/01/23 09/02/23 09/03/23 09/04/23 23:59 23:59 23:59 23:59 Intake Total 2950 Output Total 700 Balance 2250 Meds/Results Medications: Active Medications Generic Name Dose Route Start Last Admin Trade Name Freq PRN Reason Stop Dose Admin Acetaminophen 650 mg 09/04/23 14:23 Acetaminophen 325 Mg Tablet PO Q6H PRN Mild Pain (1-3) or Headache Benzocaine 1 spray 09/04/23 14:23 Benzocaine 20% Aer Spr (*Sp) 56 Gm Can TOPICAL PRN PRN Perineal Discomfort Dibucaine 1 applic 09/04/23 14:23 Dibucaine 1% Ointment 30 Gm Tube TOPICAL PRN PRN Hemorrhoids Docusate Sodium 100 mg 09/04/23 14:23 Docusate Sodium 100 Mg Capsule PO BID PRN Constipation Emollient Ointment 1 applic 09/04/23 14:23 Lanolin (Lansinoh) 7.5 Gm Cream TOPICAL PRN PRN Sore Nipp
--- NOTE | 2023-09-04 16:28 | PM.DS ---
DS: Admitting Diagnosis Discharge Date 09/04/2022 Admitting Diagnosis retained placenta DS: Discharge Diagnosis Discharge Diagnosis (1) bleeding: Code(s): O72.1 - Other immediate hemorrhage Status: Acute DS: Summary Hospital Course Reason for hospitalization: patient was admitted for suction dilatation and curettage Hospital Course: she underwent suction dilatation curettage and removed a piece of placenta. It postoperatively she was doing fine and then had some heavier bleeding. Ultrasound was performed and multiple clots were seen inside the uterus. She was given doses of Methergine and TXA and underwent a 2nd suction D&C removing about 400cc of clots. Her bleeding thereafter was small to moderate. She was having some cramping in the perirectal area due to the Methergine but was doing well and was hemodynamically stable. She is discharged home and she is to follow up early next week Time Spent with Patient Time attestation: Total time spent providing and/or coordinating discharge services: Exam Const: General: cooperative, healthy appearing and comfortable Nutritional Appearance: average body habitus Orientation/consciousness: oriented to person, oriented to place and oriented to time Resp: Effort & Inspection: normal respiratory effort : External Female Exam: normal external appearance Speculum Exam - Vagina: normal appearance of the vagina and vaginal bleeding DS: Data Data Completed and Pending Pending studies at discharge: Pending at discharge 09/04/23 07:42 Surgical [PTH] Routine 09/04/23 12:33 Surgical [PTH] Routine Labs on day of discharge: Labs from last 24 hours 09/04/23 09/04/23 09/04/23 16:16 11:41 11:21 Hgb 8.2 L 9.4 L Hct 26.7 L 30.4 L Blood Type A Positive Antibody Screen Negative Discharge Plan Discharge Patient Disposition: Home, Self-Care Stand Alone Forms: General Discharge Instructions Follow-up/Referrals: Romie Pemberton MD [Physician] - Discharge Medications: New hydrocodone-acetaminophen 5-325 mg tablet 1 tablet PO Q4H PRN (Reason: pain) Qty: 10 0RF hydrocodone-acetaminophen 5-325 mg tablet 1 tablet PO Q4H PRN (Reason: pain) Qty: 10 0RF No Action pseudoephedrine HCl [Sudafed] 30 mg Tablet 30 mg PO Q6-8H Classic 28 mg iron- 800 mcg Tablet 1 tablet PO DAILY
[2023-09-04] MEDS: HYDROcodone/acetaminophen (*CRX) 10-325 MG TABLET 1 TAB PO (16:47)
== END 2023-09-04 17:07 | disposition home or self-care (01) ==
LOC: ANHSURGERY 11:52 → ANHOB2 14:53
PROVIDERS: Visit Provider Obstetrics & Gynecology
PROC: (CPT 59160; principal; 2023-09-04 07:30)
DX: O72.0 Third-stage hemorrhage (principal); N99.89 Other postprocedural complications and disorders of genitourinary system; E11.9 Type 2 diabetes mellitus without complications; J44.9 Chronic obstructive pulmonary disease, unspecified; Z79.891 Long term (current) use of opiate analgesic; Y83.8 Other surgical procedures as the cause of abnormal reaction of the patient, or of later complication, without mention of misadventure at the time of the procedure
CPT/HCPCS: 59160 ×2; 36415; 76856; 85014; 85018; 86850; 86900; 86901; 88305; 99199; A9270; J0330; J0690; J1100; J1885; J2210; J2250; J2405; J2704; J3010; J7120

== ENCOUNTER 2023-09-11 02:00 | Inpatient (IN) | payer BC, SELFPAY ==
[2023-09-11] VITALS (9 sets, daily range): BP systolic 103–130; BP diastolic 56–86; PULSE 84–101; RESP 14–19; TEMP 36.6–37.5; O2SAT 98–100
--- NOTE | ~2023-09-11 | US_ITS ---
US pelvic complete DATE: 09/11/2023 08:31 INDICATION: vaginal bleeding TECHNIQUE: Real-time imaging via transabdominal approach COMPARISON: None FINDINGS: The uterus measures 12.7 cm height, 5.5 cm AP and 9 cm transverse dimension. There are hete rogeneous echo is of the endometrial cavity which is likely enlarged, measuring as much as 2.5 cm or greater AP dimension, likely due to retained products of conception given the history of v aginal bleeding. Right ovary measures 3.7 x 1.7 x 1.7 cm, with vascular flow. Left ovarian measures 4.9 x 1.8 x 3.3 cm, with vascular flow. No pelvic mass lesion or abnormal free pelvic fluid collection is noted. IMPRESSION: Abnormally prominent central endometrial echo, measuring 2.5 cm or greater AP dimension, likely due to retained products of conception Reviewed, dictated and finalized at [facility]. Reviewed, dictated and finalized at [facility]. ICATION ENGINEER
[2023-09-11 02:31] LABS: Basophils Percent Auto 0.4 % (0.2-1.2); Eosinophils Absolute Auto 0.4 K/mm3 (0-0.3); Eosinophils Percent Auto 4.2 % (0-4.4); Hematocrit 21.3 % (37.0-47.0); Immature Granulocyte Absolute 0.05 K/mm3 (0.00-0.031); Immature Granulocyte Percent A 0.5 % (0-0.5); Lymphocytes Absolute Auto 2.12 K/mm3 (0.9-3.2); Mean Corpuscular HGB Conc 29.1 g/dl (32-36); Mean Corpuscular Hemoglobin 27.6 pg (26-34); Mean Corpuscular Volume 94.7 fl (80-100); Mean Platelet Volume 10.1 fl (7.4-10.4); Monocytes Absolute Auto 0.6 K/mm3 (0.1-0.6); Neutrophils Absolute Auto 7.3 K/mm3 (1.3-6.7); Neutrophils Percent Auto 68.9 % (45.5-73.1); Nucleated Red Blood Cells Perc 0.3 % (0.0-0.2); Platelet Count Result 495 k/mm3 (150-375); Red Blood Count 2.25 M/mm3 (4.2-5.4); Red Cell Distribution Width 14.7 % (11.5-14.5); White Blood Count 10.6 K/mm3 (4.5-10.0)
[2023-09-11 02:47] LABS: Alanine Aminotransferase 14 U/L (6-35); Alkaline Phosphatase 90 U/L (38-126); Anion Gap 14 mmol/L (8-16); Aspartate Amino Transferase 19 U/L (14-36); Bilirubin,Total 0.5 mg/dL (0.2-1.3); Blood Urea Nitrogen 10 mg/dL (7-17); Calcium 9.1 mg/dL (8.4-10.2); Carbon Dioxide 22 mmol/L (22-30); Chloride 103 mmol/L (98-107); Estimated CRCL calculation 75 ml/min; Estimated Glomerular Filt Rate > 60; Glucose 116 mg/dL (65-110); Potassium 4.1 mmol/L (3.4-5.0); Sodium 139 mmol/L (137-145)
[2023-09-11 03:02] LABS: Beta HCG Quantitative < 2.39 mIU/ML
[2023-09-11 03:07] LABS: Anisocytosis 1+ (NORMAL); Hemoglobin 6.2 g/dL (12.0-15.0); Macrocytosis 1+ (NORMAL); Platelet Estimate Increased (Adequate); Schistocytes None Seen (NORMAL)
--- NOTE | 2023-09-11 03:55 | ED.GENADULT ---
HPI - General Adult General Chief complaint: Vaginal Bleeding Stated complaint: vaginal bleeding, recent D&C Time Seen by Provider: 09/11/23 02:43 History of Present Illness HPI narrative: Patient 38-year-old female who presents emergency department with chief complaint of vaginal bleeding. Patient was recently admitted for a D and C's status post hemorrhage the patient had a vaginal delivery on the 21 of August and had a D&C on the the patient reports that she has been passing large number clots including the clock size of an apple patient reports she is lightheaded with standing and reports that her heart rates been some fast Related Data Home Medications Medication Instructions Recorded Confirmed vits no.126-ferrous fum 1 tablet PO DAILY 07/29/23 09/03/23 28 mg iron-folic acid 800 mcg tablet (Classic ) pseudoephedrine HCl 30 mg tablet 30 mg PO Q6-8H 09/03/23 09/03/23 (Sudafed) Allergies Allergy/AdvReac Type Severity Reaction Status Date / Time No Known Allergies Allergy Verified 09/11/23 02:42 Review of Systems Review of Systems: A 10 system review of systems was completed on the patient and is negative except for what is stated in the HPI. Nursing and ancillary documentation was reviewed. [facility] Family History Family History Mother Diabetes mellitus Chronic obstructive pulmonary disease Social History Social History Smoking status: Never smoker Second hand tobacco smoke exposure: No Substance use: never Substance use type: does not use Do You Feel Safe in your Home?: Yes Lack of Transportation: No Lack of Food: Never True Current Housing: I Have Housing Concerned About Future Housing: No Difficulty Paying Gas/Electric Bills: No Difficulty Paying for Meds: No Currently Unemployed: No Education: High School Diploma/GED Difficulty w/ Childcare or Family Care: No Living arrangements: with family Spiritual care concerns: No Exam Narrative: GENERAL: Well-appearing, well-nourished, and in no acute distress. HEAD: Normocephalic, atraumatic. EYES: PERRLA and EOMI. ENT: Nares clear, no rhinorrhea or epistaxis. Mucous membranes moist. NECK: Supple. CHEST: Clear to auscultation. No respiratory distress. HEART: Regular rate and rhythm. No murmur heard. Normal peripheral pulses. ABDOMEN: Soft, nontender, nondistended, normal active bowel sounds. : Exam performed by PA no large amount of clots in the vault os was closed EXTREMITIES: Normal range of motion. No edema. SKIN: Warm, dry, no rash. NEURO: No focal deficits. Alert and oriented x3. PSYCH: Normal mood and affect. Course Vital Signs Vital signs: Vital Signs Temperature 36.6 C 09/11/23 02:04 Pulse Rate 101 H 09/11/23 02:04 Respiratory Rate 18 09/11/23 02:04 Blood Pressure 130/86 09/11/23 02:04 Pulse Oximetry 100 09/11/23 02:04 Oxygen Delivery Room Air 09/11/23 02:04 Temperature 36.6 C 09/11/23 02:04 Pulse Rate 101 H 09/11/23 02:04 Respiratory Rate 18 09/11/23 02:04 Blood Pressure 130/86 09/11/23 02:04 Pulse Oximetry 100 09/11/23 02:04 Oxygen Delivery Room Air 09/11/23 02:04 Medical Decision Making MDM Narrative Medical decision making narrative: Differential diagnosis includes hemorrhage, anemia Hemoglobin was 6 point 2 this is significantly dropped from when the patient was in the hospital The case was discussed with Dr. henson patient was offered blood transfusion the patient this time has declined due to buddhism reasons of the patient will be admitted for observation and serial H&Hs will be performed Vital Signs Vital Signs: Vital Signs Temperature 36.6 C 09/11/23 02:04 Pulse Rate 101 H 09/11/23 02:04 Respiratory Rate 18 09/11/23 02:04 Blood Pressure
--- NOTE | 2023-09-11 04:45 | PC.NURSE ---
Patient transferred to post room #288 per wheelchair from ER. Support person present. Oriented to unit, room, information board, rooming in, admission packet and security measures. Patient verbalizes understanding.
[2023-09-11] MEDS: SODIUM CHLORIDE 0.9% IV 1,000 ML 125 ML IV CONT ×3 (05:10→20:59)
--- NOTE | 2023-09-11 07:43 | PM.IMHP ---
H&P: HPI History of Present Illness Date/Time: 09/11/23 07:43 Chief Complaint: Vaginal bleeding Narrative: this 38-year-old female returns about 3 weeks out from vaginal delivery less than a week ago she had a suction D&C for retained placenta. She was returned to the OR as she had uterus full of clots and had that removed. Her bleeding seemed to stop and she was fine over the weekend. She returned to the office with some mild bleeding but then came through the ER after passing some large clots. She is presently not bleeding she states she has pentecostalism objection to blood replacement and I have explained to her that presently she is somewhat dizzy and very low that she would be a good candidate for blood transfusion she is presently refusing that at the moment but will consider. [facility] Family History Family History Mother Diabetes mellitus Chronic obstructive pulmonary disease Social History Social History Smoking status: Never smoker Second hand tobacco smoke exposure: No Substance use: never Substance use type: does not use Do You Feel Safe in your Home?: Yes Lack of Transportation: No Lack of Food: Never True Current Housing: I Have Housing Concerned About Future Housing: No Difficulty Paying Gas/Electric Bills: No Difficulty Paying for Meds: No Currently Unemployed: No Education: High School Diploma/GED Difficulty w/ Childcare or Family Care: No Living arrangements: with family Spiritual care concerns: No Meds Home Medications and Allergies Home Medications Medication Instructions Recorded Confirmed Type vits no.126-ferrous fum 1 tablet PO DAILY 07/29/23 09/03/23 History 28 mg iron-folic acid 800 mcg tablet (Classic ) pseudoephedrine HCl 30 mg tablet 30 mg PO Q6-8H 09/03/23 09/03/23 History (Sudafed) hydrocodone 5 mg-acetaminophen 325 1 tablet PO Q4H PRN pain #10 tabs 09/04/23 Rx mg tablet hydrocodone 5 mg-acetaminophen 325 1 tablet PO Q4H PRN pain #10 tabs 09/04/23 Rx mg tablet Allergies Allergy/AdvReac Type Severity Reaction Status Date / Time No Known Allergies Allergy Verified 09/11/23 02:42 Vital Signs Vital Signs - 24 hr 09/11/23 02:04 09/11/23 02:30 09/11/23 03:30 Temperature 97.9 F Pulse Rate 101 H 101 H 93 Respiratory Rate 18 14 19 Blood Pressure 130/86 114/77 116/70 Pulse Oximetry 100 99 100 Oxygen Delivery Room Air 09/11/23 04:19 09/11/23 05:10 Temperature 98.3 F Pulse Rate 93 87 Respiratory Rate 18 16 Blood Pressure 111/79 114/64 Pulse Oximetry 100 Oxygen Delivery Exam Const: General: cooperative, comfortable and average body habitus Orientation/consciousness: oriented to person, oriented to place and oriented to time Resp: Effort & Inspection: normal respiratory effort Cardio: Rate: regular rate Rhythm: regular rhythm Heart sounds: S1 normal heart sound present and S2 normal heart sound present GI: Inspection: normal to inspection H&P: Results Labs Labs: Short CBC 09/11/23 Range/Units 02:16 WBC 10.6 H (4.5-10.0) K/mm3 Hgb 6.2 L* (12.0-15.0) g/dL Hct 21.3 L (37.0-47.0) % Plt Count 495 H (150-375) k/mm3 BMP 09/11/23 02:16 Sodium 139 Potassium 4.1 Chloride 103 Carbon Dioxide 22 BUN 10 Creatinine 0.80 Glucose 116 H Calcium 9.1 Liver Function 09/11/23 Range/Units 02:16 Total Bilirubin 0.5 (0.2-1.3) mg/dL AST 19 (14-36) U/L ALT 14 (6-35) U/L Alkaline Phosphatase 90 (38-126) U/L Albumin 4.0 (3.5-5.1) g/dL Assessment and Plan Assessment and plan (1) bleeding: Code(s): O72.1 - Other immediate hemorrhage Status: Acute (2) Symptomatic anemia: Code(s): D64.9 - Anemia, unspecified Status: Acute Plan Offered blood but is refusing at this p
[2023-09-11] MEDS: TRANEXAMIC ACID 1,000MG/ISO100 1,000 MG/100 ML BAG 200 MG IVPB (08:28)
[2023-09-11] MEDS: DOCUSATE SODIUM 100 MG CAPSULE PO ×2 (10:17→16:29)
[2023-09-11] MEDS: POLYSACCHARIDE IRON COMPLEX 150 MG CAPSULE (10:17)
[2023-09-11 10:44] LABS: Hematocrit 19.2 % (37.0-47.0); Hemoglobin 5.5 g/dL (12.0-15.0)
--- NOTE | 2023-09-11 11:29 | PC.NURSE ---
Hospitalist on staff at this time called for report on pt; states he will be in to see her later.
--- NOTE | 2023-09-11 11:35 | PC.NURSE ---
Hospitalist returned call and suggested it is more appropriate for pt's case be reviewed by hematology. Will place order.
--- NOTE | 2023-09-11 12:11 | PM.GYNPNOP ---
ETL DEVELOPER - A/P Time Spent With Patient Time: Total time spent is greater than 50% in coordination of care (as documented) at patient's floor/unit and/or counseling patient: Time with patient: 15 - 25 minutes ETL DEVELOPER- PN:[place] Post-Op Subjective Date/time seen: 09/11/23 12:11 Interval history: Had a long discussion with the patient concerning transfusion. She and her are definitely still against blood transfusion. I explained that I am on unable to do much more space hemodynamically and the transfusion is recommended. I have a consult in with hematology will see her to rule out blood dyscrasia. The ultrasound did show a 2.5cm clump which may be consistent with retained placenta or clot. At this point I am fearful of hysteroscopy dilatation curettage secondary to the risk of bleeding. She is presently not bleeding and appears stable but is at a very anemic state. Have asked Dr. Mata to see the patient for further input and await consult from the pattern marking supervisor ETL DEVELOPER - PN: Obj Data Vital Signs Vital Signs: Vital Signs - 24 hr 09/11/23 02:04 09/11/23 02:30 09/11/23 03:30 Temperature 97.9 F Pulse Rate 101 H 101 H 93 Respiratory Rate 18 14 19 Blood Pressure 130/86 114/77 116/70 Pulse Oximetry 100 99 100 Oxygen Delivery Room Air 09/11/23 04:19 09/11/23 05:10 09/11/23 08:30 Temperature 98.3 F 99 F Pulse Rate 93 87 87 Respiratory Rate 18 16 16 Blood Pressure 111/79 114/64 108/61 Pulse Oximetry 100 98 Oxygen Delivery 09/11/23 11:45 Temperature 99.5 F Pulse Rate 91 Respiratory Rate 16 Blood Pressure 113/56 L Pulse Oximetry 99 Oxygen Delivery Intake/Output Intake/Output: Intake & Output 09/08/23 09/09/23 09/10/23 09/11/23 23:59 23:59 23:59 23:59 Output Total 125 Balance -125 Meds/Results Medications: Active Medications Generic Name Dose Route Start Last Admin Trade Name Freq PRN Reason Stop Dose Admin Docusate Sodium 100 mg 09/11/23 09:00 09/11/23 10:17 Docusate Sodium 100 Mg Capsule PO 100 mg Q12HR TUSHAR Administration Sodium Chloride 1,000 mls @ 125 mls/hr 09/11/23 03:55 09/11/23 05:10 Normal Saline Iv IV CONT 125 mls/hr .Q8H TUSHAR Administration Polysaccharide Iron Complex 150 mg 09/11/23 17:00 Polysaccharide Iron Complex 150 Mg Capsule PO BIDWM [facility] Radiology Results: ITS Impressions Pelvis Ultrasound 09/11/23 09:21 IMPRESSION: Abnormally prominent central endometrial echo, measuring 2.5 cm or greater AP dimension, likely due to retained products of conception Labs 09/11/23 10:26 09/11/23 02:16 Labs: Laboratory Results - last 24 hr 09/11/23 09/11/23 09/11/23 02:15 02:16 10:26 WBC 10.6 H RBC 2.25 L Hgb 6.2 L* 5.5 L* Hct 21.3 L 19.2 L* MCV 94.7 MCH 27.6 MCHC 29.1 L RDW 14.7 H Plt Count 495 H MPV 10.1 Immature Gran % (Auto) 0.5 Neut % (Auto) 68.9 Lymph % (Auto) 20.0 [place] % (Auto) 6.0 Eos % (Auto) 4.2 Baso % (Auto) 0.4 Lymph # (Auto) 2.12 [place] # (Auto) 0.6 Eos # (Auto) 0.4 H Baso # (Auto) 0.0 Abs Immat Gran (auto) 0.05 H Absolute Neuts (auto) 7.3 H Absolute Nucleated RBC 0.0 Nucleated RBC % 0.3 H Platelet Estimate Increased Anisocytosis 1+ Macrocytosis 1+ Schistocytes None seen Sodium 139 Potassium 4.1 Chloride 103 Carbon Dioxide 22 Anion Gap 14 BUN 10 Creatinine 0.80 Estim Creat Clear Calc 75 Estimated GFR > 60 Glucose 116 H Calcium 9.1 Total Bilirubin 0.5 AST 19 ALT 14 Alkaline Phosphatase 90 Total Protein 7.0 Albumin 4.0 Beta HCG, Quant < 2.39 Blood Type A Positive Antibody Screen Negative Crossmatch See Detail
--- NOTE | 2023-09-11 12:14 | PC.NURSE ---
Dr. Springer here to see pt.
--- NOTE | 2023-09-11 14:40 | PC.NURSE ---
JENNIFER Colin, from Dr. Teran's office came to see pt and discuss a plan of care.
--- NOTE | 2023-09-11 14:45 | PDONCCN ---
HPI - Date of Consult Date/Time: 09/11/23 17:11 <Desean Teran - 09/11/23 17:13> 09/11/23 14:45 <Serena Clemons - 09/11/23 14:59> Requesting Physician: Jeff Bey MD <Desean Teran - 09/11/23 17:13> Jeff Bey MD <Serena Clemons - 09/11/23 14:59> Primary Care Provider: UNKNOWN,DOCTOR <Desean Teran - 09/11/23 17:13> UNKNOWN,DOCTOR <Serena Clemons - 09/11/23 14:59> - Consult Narrative Reason for consult: Anemia d/t blood loss <DeonteSerena - 09/11/23 14:59> Narrative: Anthony Quintanilla is a 38 year old female <Desean Teran - 09/11/23 17:13> Anthony Quintanilla is a 38 year old female with no past medical history. She had a vaginal delivery Aug 21 and had major clots. She had a post hemorrhage and received a D&C for leftover placenta fragments and was discharged. She came to the ED 09/11 after passing a baseball size clot. Her Hgb was 6.2 at 0200 and dropped to 5.5 at 10am. Upon discharge after delivery, her hgb was between 9-10. A pelvis ultrasound was completed finding a 2.5cm clot or products of placenta. There is concern for active bleeding if a hysteroscopy is completed. She is now on TXA. First dose of oral iron given. The patient is refusing a blood transfusion due to yarsanism reasons, but denies being a Jehovah witness. She states she would like to hold off until absolutely necessary. Her is more against the transfusion than she is ( not in the room at this time). She is open to receiving the blood transfusion since he is not present in the room, but explained the process at length. Patient endorses passing out, lightheaded and dizziness. She denies any chest pain or heart palpitations. <Serena Clemons - 09/11/23 15:01> Review of Systems - Review of Systems All systems reviewed & are unremarkable except as noted in HPI and bel <Serena Clemons - 09/11/23 14:59> PMFSH Family History: Family History (Last Reviewed 09/11/23 @ 07:45 by Romie Stephenson MD) Mother Diabetes mellitus Chronic obstructive pulmonary disease <Desean Teran - 09/11/23 17:13> Family History (Last Reviewed 09/11/23 @ 07:45 by Romie Stephenson MD) Mother Diabetes mellitus Chronic obstructive pulmonary disease <Serena Clemons - 09/11/23 14:59> - Social History Social History: Social History (Last Reviewed 09/11/23 @ 07:45 by Romie Stephenson MD) Substance Use: Substance use: never Substance use type: does not use Others: Spiritual care concerns: No Living Arrangements: Living arrangements: with family Smoking Status: Smoking status: Never smoker Second hand tobacco smoke exposure: No Social Determinants of Health: Do You Feel Safe in your Home?: Yes Has the Lack of Transportation Kept You From Medical Appointments or From Getting Medications?: No Within the Past 12 Months, Were You Worried Whether Your Food Would Run Out Before You Got Money to Buy More?: Never True What is Your Housing Situation Today?: I Have Housing Are You Worried That in the Next 2 Months, You May Not Have Your Own Housing to Live In?: No Do You Have Trouble Paying Your Heating Or Electricity Bill?: No Do You Have Trouble Paying For Medicines?: No Are You Currently Unemployed and Looking for Work?: No Highest Level of Education Completed: High School Diploma/GED Do You Have Trouble With Childcare or the Care of a Family Member?: No <Desean Teran - 09/11/23 17:13> Social History (Last Reviewed 09/11/23 @ 07:45 by Romie Stephenson MD) Substance Use: Substance use: never Substance use type: does not use Others: Spiritual care concerns: No Living Arrangements: Living arrangements: with family Smoking Status: Smoking status: Never smoker Second hand tobacco smoke exposure: No
[2023-09-11] MEDS: POLYSACCHARIDE IRON COMPLEX 150 MG CAPSULE PO (16:29)
[2023-09-11 17:26] LABS: Prothrombin Time 14.1 Seconds (11.1-14.7)
[2023-09-11 17:27] LABS: Fibrinogen 408 mg/dl (215-510); Partial Thromboplastin Time 28.2 SECONDS (22.3-36.8)
[2023-09-11 17:28] LABS: Immature Reticulocyte Fraction 33.4 % (3.0-15.9); Reticulocyte Hemoglobin Conten 20.4 pg (28.2-35.7); Reticulocyte Percent 7.17 % (0.7-4.3); Reticulocytes Absolute 0.14 M/mm3 (0.02-0.1)
[2023-09-11 17:29] LABS: Hemoglobin 5.5 g/dL (12.0-15.0)
[2023-09-11 17:30] LABS: Hematocrit 19.3 % (37.0-47.0)
[2023-09-11 17:45] LABS: Lactate Dehydrogenase 233 U/L (120-246)
--- NOTE | 2023-09-11 17:45 | PC.NURSE ---
Dr. Bey here to speak with pt regarding condition and to evaluate pt status.
[2023-09-11 18:52] LABS: Folic Acid > 20.0 ng/mL (2.76->20)
[2023-09-11 19:16] LABS: Iron 17 ug/dL (37-170)
[2023-09-11 19:25] LABS: Percent Iron Saturation 5 % (20-50)
[2023-09-11] MEDS: IRON SUCROSE COMPLEX 300 MG in SODIUM CHLORIDE 0.9% IV 250 ML 176.67 MG IVPB (20:52)
[2023-09-12] VITALS (8 sets, daily range): BP systolic 92–115; BP diastolic 54–72; PULSE 78–92; RESP 14–18; TEMP 36.2–37.2; O2SAT 99–100
[2023-09-12] MEDS: SODIUM CHLORIDE 0.9% IV 1,000 ML 125 ML IV CONT ×3 (05:00→22:24)
[2023-09-12 05:54] LABS: Mean Corpuscular HGB Conc 28.9 g/dl (32-36); Mean Corpuscular Hemoglobin 27.5 pg (26-34); Platelet Count Result 459 k/mm3 (150-375); Red Cell Distribution Width 14.6 % (11.5-14.5); White Blood Count 8.5 K/mm3 (4.5-10.0)
[2023-09-12 06:33] LABS: Hemoglobin 5.5 g/dL (12.0-15.0)
--- NOTE | 2023-09-12 07:03 | PM.GYNPNOP ---
BALANCE WHEEL ARM BURNISHER - A/P Time Spent With Patient Time: Total time spent is greater than 50% in coordination of care (as documented) at patient's floor/unit and/or counseling patient: BALANCE WHEEL ARM BURNISHER- PN:[place] Post-Op Subjective Date/time seen: 09/12/23 07:03 Interval history: Had a long discussion with the patient concerning transfusion. She and her are definitely still against blood transfusion. I explained that I am on unable to do much more space hemodynamically and the transfusion is recommended. I have a consult in with hematology will see her to rule out blood dyscrasia. The ultrasound did show a 2.5cm clump which may be consistent with retained placenta or clot. At this point I am fearful of hysteroscopy dilatation curettage secondary to the risk of bleeding. She is presently not bleeding and appears stable but is at a very anemic state. Have asked Dr. Mata to see the patient for further input and await consult from the sub master BALANCE WHEEL ARM BURNISHER - PN: Obj Data Vital Signs Vital Signs: Vital Signs - 24 hr 09/11/23 08:30 09/11/23 11:45 09/11/23 16:00 Temperature 99 F 99.5 F 99.1 F Pulse Rate 87 91 90 Respiratory Rate 16 16 18 Blood Pressure 108/61 113/56 L 103/70 Pulse Oximetry 98 99 99 Oxygen Delivery 09/11/23 16:00 09/11/23 20:50 09/12/23 00:15 Temperature 98.2 F 98.0 F Pulse Rate 84 89 Respiratory Rate 16 16 Blood Pressure 112/60 107/68 Pulse Oximetry Oxygen Delivery Room Air 09/12/23 05:00 Temperature 97.2 F L Pulse Rate 92 Respiratory Rate 16 Blood Pressure 108/64 Pulse Oximetry Oxygen Delivery Intake/Output Intake/Output: Intake & Output 09/09/23 09/10/23 09/11/23 09/12/23 23:59 23:59 23:59 23:59 Intake Total 4215 1000 Output Total 1725 850 Balance 2490 150 Meds/Results Medications: Active Medications Generic Name Dose Route Start Last Admin Trade Name Freq PRN Reason Stop Dose Admin Docusate Sodium 100 mg 09/11/23 09:00 09/11/23 16:29 Docusate Sodium 100 Mg Capsule PO 100 mg Q12HR TUSHAR Administration Sodium Chloride 1,000 mls @ 125 mls/hr 09/11/23 03:55 09/12/23 05:00 Normal Saline Iv IV CONT 125 mls/hr .Q8H TUSHAR Administration Polysaccharide Iron Complex 150 mg 09/11/23 17:00 09/11/23 16:29 Polysaccharide Iron Complex 150 Mg Capsule PO 150 mg BIDWM TUSHAR Administration Radiology Results: ITS Impressions Pelvis Ultrasound 09/11/23 09:21 IMPRESSION: Abnormally prominent central endometrial echo, measuring 2.5 cm or greater AP dimension, likely due to retained products of conception Labs 09/12/23 05:04 09/11/23 02:16 Labs: Laboratory Results - last 24 hr 09/11/23 09/11/23 09/11/23 10:26 16:55 16:56 WBC RBC Hgb 5.5 L* 5.5 L* Hct 19.2 L* 19.3 L* MCV MCH MCHC RDW Plt Count MPV Absolute Retic 0.14 H Percent Retic 7.17 H Immature Retic Fraction 33.4 H Retic Hgb Content 20.4 L PT 14.1 INR 1.0 APTT 28.2 Fibrinogen 408 Iron TIBC % Saturation Ferritin Lactate Dehydrogenase 233 Vitamin B12 678.0 Folate > 20.0 H JOYCE, IgG Interpret Not Performed JOYCE, Poly Interpret Negative JOYCE, Complement Interp Not Performed 09/11/23 09/12/23 16:59 05:04 WBC 8.5 RBC 2.00 L Hgb 5.5 L* Hct 19.0 L* MCV 95.0 MCH 27.5 MCHC 28.9 L RDW 14.6 H Plt Count 459 H MPV 10.0 Absolute Retic Percent Retic Immature Retic Fraction Retic Hgb Content PT INR APTT Fibrinogen Iron 17 L TIBC 334 % Saturation 5 L Ferritin 30.50 Lactate Dehydrogenase Vitamin B12 Folate JOYCE, IgG Interpret JOYCE, Poly Interpret JOYCE, Complement Interp
--- NOTE | 2023-09-12 07:04 | PM.GYNPNOP ---
NURSING PROGRAM MANAGER - A/P Postoperative Procedures: The patient continues to refuse blood transfusion. Again explained to her that she has no reserve. The material in the uterus appears to be clot however I am unsure at this point. And unwilling to take her back to the operating room to to her lack of preserved. She presently is not bleeding to continue to watch. She received iron infusion last night. Will continue to abide by recommendations of Hematology. Time Spent With Patient Time: Total time spent is greater than 50% in coordination of care (as documented) at patient's floor/unit and/or counseling patient: Time with patient: 15 - 25 minutes NURSING PROGRAM MANAGER- PN:Subj Post-Op Subjective Date/time seen: 09/12/23 07:04 Interval history: Had a long discussion with the patient concerning transfusion. She and her are definitely still against blood transfusion. I explained that I am on unable to do much more space hemodynamically and the transfusion is recommended. I have a consult in with hematology will see her to rule out blood dyscrasia. The ultrasound did show a 2.5cm clump which may be consistent with retained placenta or clot. At this point I am fearful of hysteroscopy dilatation curettage secondary to the risk of bleeding. She is presently not bleeding and appears stable but is at a very anemic state. Have asked Dr. Mata to see the patient for further input and await consult from the medical delivery driver Subjective: patient reports feeling better Exam Const: General: cooperative, healthy appearing and comfortable Nutritional Appearance: average body habitus Orientation/consciousness: oriented to person, oriented to place and oriented to time HENMT: Head: normal to inspection Resp: Effort & Inspection: normal respiratory effort NURSING PROGRAM MANAGER - PN: Obj Data Vital Signs Vital Signs: Vital Signs - 24 hr 09/11/23 08:30 09/11/23 11:45 09/11/23 16:00 Temperature 99 F 99.5 F 99.1 F Pulse Rate 87 91 90 Respiratory Rate 16 16 18 Blood Pressure 108/61 113/56 L 103/70 Pulse Oximetry 98 99 99 Oxygen Delivery 09/11/23 16:00 09/11/23 20:50 09/12/23 00:15 Temperature 98.2 F 98.0 F Pulse Rate 84 89 Respiratory Rate 16 16 Blood Pressure 112/60 107/68 Pulse Oximetry Oxygen Delivery Room Air 09/12/23 05:00 Temperature 97.2 F L Pulse Rate 92 Respiratory Rate 16 Blood Pressure 108/64 Pulse Oximetry Oxygen Delivery Intake/Output Intake/Output: Intake & Output 09/09/23 09/10/23 09/11/23 09/12/23 23:59 23:59 23:59 23:59 Intake Total 4215 1000 Output Total 1725 850 Balance 2490 150 Meds/Results Medications: Active Medications Generic Name Dose Route Start Last Admin Trade Name Myrna PRN Reason Stop Dose Admin Docusate Sodium 100 mg 09/11/23 09:00 09/11/23 16:29 Docusate Sodium 100 Mg Capsule PO 100 mg Q12HR TUSHAR Administration Sodium Chloride 1,000 mls @ 125 mls/hr 09/11/23 03:55 09/12/23 05:00 Normal Saline Iv IV CONT 125 mls/hr .Q8H TUSHAR Administration Polysaccharide Iron Complex 150 mg 09/11/23 17:00 09/11/23 16:29 Polysaccharide Iron Complex 150 Mg Capsule PO 150 mg BIDWM TUSHAR Administration Radiology Results: ITS Impressions Pelvis Ultrasound 09/11/23 09:21 IMPRESSION: Abnormally prominent central endometrial echo, measuring 2.5 cm or greater AP dimension, likely due to retained products of conception Labs 09/12/23 05:04 09/11/23 02:16 Labs: Laboratory Results - last 24 hr 09/11/23 09/11/23 09/11/23 10:26 16:55 16:56 WBC RBC Hgb 5.5 L* 5.5 L* Hct 19.2 L* 19.3 L* MCV MCH MCHC RDW Plt Count MPV Absolute Retic 0.14 H Percent Retic 7.17 H Immature Retic Fraction 33.4 H Retic Hgb Content 20.4 L PT 14.1 INR 1.0 APTT 28.2 Fibrinogen 408 Iron TIBC % Saturation Ferritin Lactate Dehydrogenase 233 Vitamin B12 678.0 Folate > 20.0 H D
[2023-09-12] MEDS: DOCUSATE SODIUM 100 MG CAPSULE PO ×2 (09:19→20:22)
[2023-09-12] MEDS: POLYSACCHARIDE IRON COMPLEX 150 MG CAPSULE PO ×2 (09:19→17:15)
--- NOTE | 2023-09-12 11:55 | PC.NURSE ---
1155-Dr. Sandeep Stephenson here to visit with patient with regard to receiving blood products at patient's request; pt considering receiving 1 unit.
--- NOTE | 2023-09-12 12:31 | PC.NURSE ---
1145-Pt called out for RN to come to room; pt questioned RN about the process of getting blood and asked to speak to Dr. Sandeep Stephenson again. RN called Dr. Sandeep Stephenson to come to speak to pt in room.
[2023-09-12] MEDS: ACETAMINOPHEN 500 MG TABLET 1000 MG PO (13:30)
--- NOTE | 2023-09-12 13:54 | PC.NURSE ---
1330-Dr. Teran from Hematology visited pt today; pt stated to doctor that she would be receiving blood today; Dr. Teran told RN that pt could go home after receiving blood; RN stated to Dr. Teran that pt has decided to not sign consent for blood; pt states that 's brother who is in holistic medicine suggests the pt eat beats and other foods high in iron. Message was left w/office staff for Dr. Sandeep Stephenson to call RN. 1342-[facility] OB Director states that pt will be transferring to a telemetry floor where pt can be monitored more closely.
--- NOTE | 2023-09-12 16:11 | PC.NURSE ---
1600-Transferred pt via wheelchair to 2nd Medical Telemetry floor; report given to RN.
--- NOTE | 2023-09-12 16:39 | PCCCNOTE ---
Per Care Coordination. Patient referred to CC for counseling surrounding decision to get blood. Met with pt. who was tearful. She explained that due to her heritage she does not believe in getting blood from someone else. Pt. had called out after her spouse left and seemed that she wanted to get blood quickly while he wasn't here. RN and myself explained it would not be a quick process, but if she wanted to do it without her 's knowledge we could possibly do it in another room. Pt. talked with doctor again and wanted to sign consent for blood. She asked that I call her spouse to notify him of the potentially dire situation. I spoke with spouse via phone. He was upset. He yelled and cursed. He did calm down and I provided support at the difficult decision, but explained his 's life could be on the line. He wanted to talk with her again and felt that she could possibly eat certain foods that might bring up her blood count. I explained that was unlikely to be enough. After our call, he talked to pt. and she then again became teary per nurse and decided to wait another day and see how it would go eating these iron rich foods. Pt. and spouse both reported at times that it was pt.'s decision, but it did feel that spouse's input was weighing on pt. heavily. Pt. to be transferred to medical floor for closer monitoring. Will follow
--- NOTE | 2023-09-12 22:48 | WPDCN ---
Assessment and Plan Assessment and plan (1) Symptomatic anemia: Code(s): D64.9 - Anemia, unspecified Status: Acute Assessment and Plan: She is profoundly anemic with a hemoglobin of 5.5 (this has been stable) and she is symptomatic. Recommend transfusion of 2 units packed red blood cells though she would like to avoid transfusion. (2) Iron deficiency: Code(s): E61.1 - Iron deficiency Status: Acute Assessment and Plan: Iron studies noted and she has been started on p.o. supplementation. Hematology has been consulted and they did give her an iron transfusion. (3) bleeding: Code(s): O72.1 - Other immediate hemorrhage Status: Acute Assessment and Plan: Pelvic ultrasound yesterday showed a 2.5 cm area concerning for a clot or retained placenta. Forensic Engineer is hesitant to perform hysteroscopy with D&C due to risk of bleeding in this patient who refuses transfusion at this time. Plan Thank you for allowing us to participate in this patient's care. Please do not hesitate to contact us with any questions. HPI Data of Consult Date/Time: 09/12/23 23:00 Requesting Physician: Jeff Bey MD Consult Narrative Reason for consult: Medical management. Narrative: This is a previously healthy 38-year-old female admitted to the emergency department yesterday for anemia whom the hospitalist service has been consulted for medical management. The patient provides the following history. She is about 3 weeks out from a vaginal delivery and less than 1 week ago she had a suction dilation and curettage for retained placenta. She presented to the ED early yesterday morning with heavy vaginal bleeding and lightheadedness at which time she was found to have profound anemia with a hemoglobin and hematocrit of 5.5 and 19.2% respectively. She was admitted and was seen by her senior manager asset protection. Ultrasound showed a 2.5 cm area which may be retained placenta or clot however hysteroscopy with dilation and curratage poses a bleeding risk which at this time is not being pursued given her anemia and refusal of blood transfusion. She has thus far received TXA, an iron infusion, and she has been started on p.o. iron supplementation. At the time my evaluation she is resting comfortably. She has some mild shortness of breath with activity. She denies lightheadedness, dizziness, syncope, near syncope, and sensations of racing heart. Her bleeding has slowed down significantly. Appetite has been okay and she denies nausea and vomiting. Review of Systems Review of Systems: Twelve systems were reviewed and are negative except for as per HPI. FORMERLY [facility] Past Medical History Medical History (Updated 09/12/23 @ 22:59 by Porsha Alcantara PA-C) No significant past medical history Surgical History Surgical History (Updated 09/12/23 @ 22:57 by Porsha Alcantara PA-C) History of dilation and curettage History of elbow surgery History of hysteroscopy Family History Family History Mother Diabetes mellitus Chronic obstructive pulmonary disease Social History Social History (Updated 09/12/23 @ 22:59 by Porsha Alcantara PA-C) Social History: Surrogate medical decision maker: Francisco Dwight, spouse. Code status: Full code. Smoking status: Never smoker Second hand tobacco smoke exposure: No Substance use: never Substance use type: does not use Do You Feel Safe in your Home?: Yes Lack of Transportation: No Lack of Food: Never True Current Housing: I Have Housing Concerned About Future Housing: No Difficulty Paying Gas/Electric Bills: No Difficulty Paying for Meds: No Currently Unemployed: No Education: High School Diploma/GED Difficulty w/ Childcare or Family Care: No Living arrangements: with family Spiritual care concerns: No Meds Home Medications and Allergies Home Medica
[2023-09-13] VITALS (9 sets, daily range): BP systolic 96–111; BP diastolic 58–72; PULSE 71–100; RESP 14–20; TEMP 36.5–36.6; O2SAT 99–100
[2023-09-13 05:39] LABS: Basophils Absolute Auto 0.1 K/mm3 (0.0-0.1); Basophils Percent Auto 0.6 % (0.2-1.2); Eosinophils Absolute Auto 0.7 K/mm3 (0-0.3); Eosinophils Percent Auto 8.2 % (0-4.4); Hematocrit 21.3 % (37.0-47.0); Immature Granulocyte Absolute 0.15 K/mm3 (0.00-0.031); Immature Granulocyte Percent A 1.8 % (0-0.5); Lymphocytes Absolute Auto 2.07 K/mm3 (0.9-3.2); Lymphocytes Percent Auto 24.9 % (18.3-44.2); Mean Corpuscular HGB Conc 29.6 g/dl (32-36); Mean Corpuscular Hemoglobin 28.6 pg (26-34); Mean Corpuscular Volume 96.8 fl (80-100); Mean Platelet Volume 9.9 fl (7.4-10.4); Monocytes Absolute Auto 0.6 K/mm3 (0.1-0.6); Neutrophils Absolute Auto 4.8 K/mm3 (1.3-6.7); Neutrophils Percent Auto 57.5 % (45.5-73.1); Nucleated Red Blood Cells Perc 0.4 % (0.0-0.2); Platelet Count Result 535 k/mm3 (150-375); Red Cell Distribution Width 14.7 % (11.5-14.5); White Blood Count 8.3 K/mm3 (4.5-10.0)
[2023-09-13 05:51] LABS: Hemoglobin 6.3 g/dL (12.0-15.0)
[2023-09-13 06:11] LABS: Hypochromasia 1+ (NORMAL); Macrocytosis 1+ (NORMAL); Platelet Estimate Increased (Adequate); Schistocytes None Seen (NORMAL)
[2023-09-13] MEDS: DOCUSATE SODIUM 100 MG CAPSULE PO ×2 (08:51→20:19)
[2023-09-13] MEDS: POLYSACCHARIDE IRON COMPLEX 150 MG CAPSULE PO ×2 (08:51→17:34)
--- NOTE | 2023-09-13 08:54 | PM.GYNPNOP ---
PLASTICS REPAIRER - A/P Time Spent With Patient Time: Total time spent is greater than 50% in coordination of care (as documented) at patient's floor/unit and/or counseling patient: Time with patient: 15 - 25 minutes PLASTICS REPAIRER- PN:[place] Post-Op Subjective Date/time seen: 09/13/23 08:54 Interval history: To be in a long conversation with the patient. Her hemoglobin is 6.3 but her bleeding has picked up slightly. We discussed the possibility of transfusion. She notes that some for rejection of this idea secondary to please and putting another person inside of her body. Again explained to her that she is presently very low on hemoglobin and at risk for if another episode occurs. Still resistant to hysteroscopic resection of clot or placental piece secondary to the patient's unstable state. She is considering the blood. As her bleeding has slightly increased and going to give her a 2nd dose of TXA today. Risks and benefits of that were reviewed in great detail recheck a hemoglobin l PLASTICS REPAIRER - PN: Obj Data Vital Signs Vital Signs: Vital Signs - 24 hr 09/12/23 09:20 09/12/23 12:30 09/12/23 17:30 Temperature 98.9 F Pulse Rate 84 78 Respiratory Rate 18 18 Blood Pressure 111/69 Pulse Oximetry 100 99 Oxygen Delivery Room Air Room Air 09/12/23 16:45 09/12/23 21:04 09/12/23 20:25 Temperature 98.9 F 97.6 F Pulse Rate 78 80 Respiratory Rate 18 14 Blood Pressure 111/69 115/72 Pulse Oximetry 99 100 Oxygen Delivery Room Air Room Air 09/12/23 23:42 09/13/23 05:36 09/13/23 08:45 Temperature 97.8 F 97.9 F Pulse Rate 83 71 Respiratory Rate 16 14 Blood Pressure 114/62 96/60 L Pulse Oximetry 100 99 99 Oxygen Delivery Room Air Intake/Output Intake/Output: Intake & Output 09/10/23 09/11/23 09/12/23 09/13/23 23:59 23:59 23:59 23:59 Intake Total 4215 3640 350 Output Total 1725 2550 Balance 2490 1090 350 Meds/Results Medications: Active Medications Generic Name Dose Route Start Last Admin Trade Name Freq PRN Reason Stop Dose Admin Acetaminophen 1,000 mg 09/12/23 14:39 09/12/23 13:30 Acetaminophen 500 Mg Tablet PO 1,000 mg Q6H PRN Administration Headache Docusate Sodium 100 mg 09/11/23 09:00 09/13/23 08:51 Docusate Sodium 100 Mg Capsule PO 100 mg Q12HR TUSHAR Administration Polysaccharide Iron Complex 150 mg 09/11/23 17:00 09/13/23 08:51 Polysaccharide Iron Complex 150 Mg Capsule PO 150 mg BIDWM TUSHAR Administration Radiology Results: ITS Impressions Pelvis Ultrasound 09/11/23 09:21 IMPRESSION: Abnormally prominent central endometrial echo, measuring 2.5 cm or greater AP dimension, likely due to retained products of conception Labs 09/13/23 04:36 09/11/23 02:16 Labs: Laboratory Results - last 24 hr 09/11/23 09/13/23 02:15 04:36 WBC 8.3 RBC 2.20 L Hgb 6.3 L* Hct 21.3 L MCV 96.8 MCH 28.6 MCHC 29.6 L RDW 14.7 H Plt Count 535 H MPV 9.9 Immature Gran % (Auto) 1.8 H Neut % (Auto) 57.5 Lymph % (Auto) 24.9 Arthur % (Auto) 7.0 Eos % (Auto) 8.2 H Baso % (Auto) 0.6 Lymph # (Auto) 2.07 Arthur # (Auto) 0.6 Eos # (Auto) 0.7 H Baso # (Auto) 0.1 Abs Immat Gran (auto) 0.15 H Absolute Neuts (auto) 4.8 Absolute Nucleated RBC 0.0 Nucleated RBC % 0.4 H Platelet Estimate Increased Hypochromasia 1+ Macrocytosis 1+ Schistocytes None seen Blood Type A Positive Antibody Screen Negative Crossmatch See Detail
--- NOTE | 2023-09-13 09:14 | PM.IMPN ---
Progress Note: A&P Assessment and Plan (1) Symptomatic anemia: Code(s): D64.9 - Anemia, unspecified Status: Acute (2) Iron deficiency: Code(s): E61.1 - Iron deficiency Status: Acute (3) bleeding: Code(s): O72.1 - Other immediate hemorrhage Status: Acute Plan bleeding/Anemia -Hgb 5.5 POA/6.3 09/13/2023 -Pelvic US with 2.5 cm retained clot or placenta -OB admitting -recommend blood transfusion patient currently refusing due to adventism beliefs -hematology following -TXA treament x 2 -soft BP monitor for symptomatic hypotension -Intervention on hold due to severe increased bleeding risk and PT current refusal of transfusion -Iron supplements BID Time Spent With Patient Time with patient: less than 15 minutes Subjective Date/time seen: 09/13/23 09:14 Interval history: HPI Data of Consult Date/Time: 09/12/23? 23:00 Requesting Physician: Jeff Bey MD Consult Narrative Reason for consult: Medical management. Narrative: This is a previously healthy 38-year-old female admitted to the emergency department yesterday for anemia whom the hospitalist service has been consulted for medical management. The patient provides the following history. She is about 3 weeks out from a vaginal delivery and less than 1 week ago she had a suction dilation and curettage for retained placenta. She presented to the ED early yesterday morning with heavy vaginal bleeding and lightheadedness at which time she was found to have profound anemia with a hemoglobin and hematocrit of 5.5 and 19.2% respectively. She was admitted and was seen by her fuel cell engineer. Ultrasound showed a 2.5 cm area which may be retained placenta or clot however hysteroscopy with dilation and curratage poses a bleeding risk which at this time is not being pursued given her anemia and refusal of blood transfusion. She has thus far received TXA, an iron infusion, and she has been started on p.o. iron supplementation. At the time my evaluation she is resting comfortably. She has some mild shortness of breath with activity. She denies lightheadedness, dizziness, syncope, near syncope, and sensations of racing heart. Her bleeding has slowed down significantly. Appetite has been okay and she denies nausea and vomiting. 09/13/2023: Patient Hgb mildly improved to 6.3 today however she continues bleeding and reported clots this am. Patient reports headache denies dizziness. BP is soft will need to monitor closely for symptomatic hypotension. Patient still at this time does not want blood transfusion due to adventism beliefs explained the risks as well as explained findings on ultrasound intervention on hold due to current concerns and bleeding risks. Continue Iron supplements per OB TXA will be given again. Review of Systems Review of Systems: All systems reviewed & are unremarkable except as noted in HPI and below Exam Narrative: Physical Exam: - GENERAL: Alert and oriented x 3. No acute distress. Well-nourished. - EYES: EOMI. No scleral icterus. PERRLA. - HENT: Moist mucous membranes. No cervical lymphadenopathy. - LUNGS: Clear to auscultation bilaterally. No accessory muscle use. - CARDIOVASCULAR: Regular rate and rhythm. No murmur. No JVD. S1-S2 - ABDOMEN: Soft, non-tender and non-distended. No palpable masses. - EXTREMITIES: No edema. Non-tender -SKIN: No rashes or lesions. Skin warm, dry. - NEUROLOGIC: No focal neurological deficits. CN II-XII grossly intact - PSYCHIATRIC: Appropriate mood and affect. Good judgement and insight. No visual or auditory hallucinations. No suicidal or homicidal ideation. Objective Data Vital Signs Vital Signs: Vital Signs - 24 hr 09/12/23 09:20 09/12/23 12:30 09/12/23 17:30 Temperature 98.9 F Pulse Rate 84 78 Respiratory Rate 18 18 Blood Pressure 111/69 Pulse Oximetry 100 99 Oxygen Delivery Room Air Room Air 09/12/23 16:45 09/12/23 21:04
[2023-09-13] MEDS: TRANEXAMIC ACID 1,000MG/ISO100 1,000 MG/100 ML BAG 200 MG IVPB (11:11)
[2023-09-14] VITALS (10 sets, daily range): BP systolic 95–112; BP diastolic 55–82; PULSE 64–98; RESP 16–18; TEMP 36.1–36.9; O2SAT 99–100
[2023-09-14 04:44] LABS: Basophils Absolute Auto 0.1 K/mm3 (0.0-0.1); Basophils Percent Auto 0.6 % (0.2-1.2); Eosinophils Absolute Auto 0.6 K/mm3 (0-0.3); Eosinophils Percent Auto 6.6 % (0-4.4); Hematocrit 25.3 % (37.0-47.0); Hemoglobin 7.2 g/dL (12.0-15.0); Immature Granulocyte Absolute 0.13 K/mm3 (0.00-0.031); Immature Granulocyte Percent A 1.4 % (0-0.5); Lymphocytes Absolute Auto 2.29 K/mm3 (0.9-3.2); Lymphocytes Percent Auto 24.3 % (18.3-44.2); Mean Corpuscular HGB Conc 28.5 g/dl (32-36); Mean Corpuscular Hemoglobin 27.6 pg (26-34); Mean Corpuscular Volume 96.9 fl (80-100); Mean Platelet Volume 9.8 fl (7.4-10.4); Monocytes Absolute Auto 0.7 K/mm3 (0.1-0.6); Monocytes Percent Auto 7.7 % (2.6-8.5); Neutrophils Absolute Auto 5.6 K/mm3 (1.3-6.7); Neutrophils Percent Auto 59.4 % (45.5-73.1); Nucleated Red Blood Cells Absolute Auto 0.1 K/mm3 (0.0-0.012); Nucleated Red Blood Cells Perc 0.5 % (0.0-0.2); Platelet Count Result 576 k/mm3 (150-375); Red Blood Count 2.61 M/mm3 (4.2-5.4); Red Cell Distribution Width 15.6 % (11.5-14.5); White Blood Count 9.4 K/mm3 (4.5-10.0)
[2023-09-14] MEDS: DOCUSATE SODIUM 100 MG CAPSULE PO ×2 (08:22→20:19)
[2023-09-14] MEDS: POLYSACCHARIDE IRON COMPLEX 150 MG CAPSULE PO ×2 (08:22→17:04)
--- NOTE | 2023-09-14 08:22 | PM.GYNPNOP ---
CHIEF ENTERPRISE ARCHITECT - A/P Time Spent With Patient Time: Total time spent is greater than 50% in coordination of care (as documented) at patient's floor/unit and/or counseling patient: CHIEF ENTERPRISE ARCHITECT- PN:Subj Post-Op Subjective Date/time seen: 09/14/23 08:22 Interval history: HPI Data of Consult Date/Time: 09/12/23? 23:00 Requesting Physician: Jeff Bey MD Consult Narrative Reason for consult: Medical management. Narrative: This is a previously healthy 38-year-old female admitted to the emergency department yesterday for anemia whom the hospitalist service has been consulted for medical management. The patient provides the following history. She is about 3 weeks out from a vaginal delivery and less than 1 week ago she had a suction dilation and curettage for retained placenta. She presented to the ED early yesterday morning with heavy vaginal bleeding and lightheadedness at which time she was found to have profound anemia with a hemoglobin and hematocrit of 5.5 and 19.2% respectively. She was admitted and was seen by her medical data entry clerk. Ultrasound showed a 2.5 cm area which may be retained placenta or clot however hysteroscopy with dilation and curratage poses a bleeding risk which at this time is not being pursued given her anemia and refusal of blood transfusion. She has thus far received TXA, an iron infusion, and she has been started on p.o. iron supplementation. At the time my evaluation she is resting comfortably. She has some mild shortness of breath with activity. She denies lightheadedness, dizziness, syncope, near syncope, and sensations of racing heart. Her bleeding has slowed down significantly. Appetite has been okay and she denies nausea and vomiting. 09/13/2023: Patient Hgb mildly improved to 6.3 today however she continues bleeding and reported clots this am. Patient reports headache denies dizziness. BP is soft will need to monitor closely for symptomatic hypotension. Patient still at this time does not want blood transfusion due to lutheran beliefs explained the risks as well as explained findings on ultrasound intervention on hold due to current concerns and bleeding risks. Continue Iron supplements per OB TXA will be given again. CHIEF ENTERPRISE ARCHITECT - PN: Obj Data Vital Signs Vital Signs: Vital Signs - 24 hr 09/13/23 08:45 09/13/23 08:47 09/13/23 13:32 Temperature 97.7 F Pulse Rate 82 Respiratory Rate 20 Blood Pressure 108/58 L Pulse Oximetry 99 100 Oxygen Delivery Room Air Room Air 09/13/23 13:35 09/13/23 13:37 09/13/23 13:32 Temperature 97.7 F Pulse Rate 81 84 82 Respiratory Rate 20 Blood Pressure 109/64 104/71 108/58 L Pulse Oximetry 100 100 100 Oxygen Delivery 09/13/23 19:36 09/13/23 19:36 09/13/23 19:37 Temperature 97.8 F Pulse Rate 88 88 94 Respiratory Rate 16 Blood Pressure 103/66 103/66 100/67 Pulse Oximetry 100 Oxygen Delivery 09/13/23 19:38 09/13/23 20:00 09/13/23 20:00 Temperature Pulse Rate 100 100 93 Respiratory Rate 16 Blood Pressure 111/72 Pulse Oximetry 100 Oxygen Delivery Room Air 09/14/23 00:00 09/14/23 04:22 09/14/23 04:00 Temperature 97.6 F Pulse Rate 73 67 64 Respiratory Rate 16 Blood Pressure 100/55 L Pulse Oximetry 100 Oxygen Delivery Intake/Output Intake/Output: Intake & Output 09/11/23 09/12/23 09/13/23 09/14/23 23:59 23:59 23:59 23:59 Intake Total 4215 3640 1560 550 Output Total 1725 2550 Balance 2490 1090 1560 550 Meds/Results Medications: Active Medications Generic Name Dose Route Start Last Admin Trade Name Freq PRN Reason Stop Dose Admin Acetaminophen 1,000 mg 09/12/23 14:39 09/12/23 13:30 Acetaminophen 500 Mg Tablet PO 1,000 mg Q6H PRN Administration Headache Docusate Sodium 100 mg 09/11/23 09:00 09/13/23 20:19 Docusate Sodium 100 Mg Capsule PO 100 mg Q12HR TUSHAR Administration Polysaccharide Iron Complex 150 mg 09/11/23 17:00 09/13/23 17:34 Polysaccharide Iron Complex
--- NOTE | 2023-09-14 08:23 | PM.GYNPNOP ---
OIL WELL DRILLING MANAGER - A/P Time Spent With Patient Time: Total time spent is greater than 50% in coordination of care (as documented) at patient's floor/unit and/or counseling patient: Time with patient: less than 15 minutes OIL WELL DRILLING MANAGER- PN:Subj Post-Op Subjective Date/time seen: 09/14/23 08:23 Interval history: HPI Data of Consult Date/Time: 09/12/23? 23:00 Requesting Physician: Jeff Bey MD Consult Narrative Reason for consult: Medical management. Narrative: This is a previously healthy 38-year-old female admitted to the emergency department yesterday for anemia whom the hospitalist service has been consulted for medical management. The patient provides the following history. She is about 3 weeks out from a vaginal delivery and less than 1 week ago she had a suction dilation and curettage for retained placenta. She presented to the ED early yesterday morning with heavy vaginal bleeding and lightheadedness at which time she was found to have profound anemia with a hemoglobin and hematocrit of 5.5 and 19.2% respectively. She was admitted and was seen by her recreation specialist. Ultrasound showed a 2.5 cm area which may be retained placenta or clot however hysteroscopy with dilation and curratage poses a bleeding risk which at this time is not being pursued given her anemia and refusal of blood transfusion. She has thus far received TXA, an iron infusion, and she has been started on p.o. iron supplementation. At the time my evaluation she is resting comfortably. She has some mild shortness of breath with activity. She denies lightheadedness, dizziness, syncope, near syncope, and sensations of racing heart. Her bleeding has slowed down significantly. Appetite has been okay and she denies nausea and vomiting. 09/13/2023: Patient Hgb mildly improved to 6.3 today however she continues bleeding and reported clots this am. Patient reports headache denies dizziness. BP is soft will need to monitor closely for symptomatic hypotension. Patient still at this time does not want blood transfusion due to zoroastrianism beliefs explained the risks as well as explained findings on ultrasound intervention on hold due to current concerns and bleeding risks. Continue Iron supplements per OB TXA will be given again. OIL WELL DRILLING MANAGER - PN: Obj Data Vital Signs Vital Signs: Vital Signs - 24 hr 09/13/23 08:45 09/13/23 08:47 09/13/23 13:32 Temperature 97.7 F Pulse Rate 82 Respiratory Rate 20 Blood Pressure 108/58 L Pulse Oximetry 99 100 Oxygen Delivery Room Air Room Air 09/13/23 13:35 09/13/23 13:37 09/13/23 13:32 Temperature 97.7 F Pulse Rate 81 84 82 Respiratory Rate 20 Blood Pressure 109/64 104/71 108/58 L Pulse Oximetry 100 100 100 Oxygen Delivery 09/13/23 19:36 09/13/23 19:36 09/13/23 19:37 Temperature 97.8 F Pulse Rate 88 88 94 Respiratory Rate 16 Blood Pressure 103/66 103/66 100/67 Pulse Oximetry 100 Oxygen Delivery 09/13/23 19:38 09/13/23 20:00 09/13/23 20:00 Temperature Pulse Rate 100 100 93 Respiratory Rate 16 Blood Pressure 111/72 Pulse Oximetry 100 Oxygen Delivery Room Air 09/14/23 00:00 09/14/23 04:22 09/14/23 04:00 Temperature 97.6 F Pulse Rate 73 67 64 Respiratory Rate 16 Blood Pressure 100/55 L Pulse Oximetry 100 Oxygen Delivery Intake/Output Intake/Output: Intake & Output 09/11/23 09/12/23 09/13/23 09/14/23 23:59 23:59 23:59 23:59 Intake Total 4215 3640 1560 550 Output Total 1725 2550 Balance 2490 1090 1560 550 Meds/Results Medications: Active Medications Generic Name Dose Route Start Last Admin Trade Name Freq PRN Reason Stop Dose Admin Acetaminophen 1,000 mg 09/12/23 14:39 09/12/23 13:30 Acetaminophen 500 Mg Tablet PO 1,000 mg Q6H PRN Administration Headache Docusate Sodium 100 mg 09/11/23 09:00 09/14/23 08:22 Docusate Sodium 100 Mg Capsule PO 100 mg Q12HR TUSHAR Administration Polysaccharide Iron Complex 150 mg 09/11/23 17:00 09/14
--- NOTE | 2023-09-14 08:23 | PM.GYNPNOP ---
SUPERVISOR THROWING DEPARTMENT - A/P Postoperative Postoperative status: doing well Postoperative plan: routine post-op care and see orders Time Spent With Patient Time: Total time spent is greater than 50% in coordination of care (as documented) at patient's floor/unit and/or counseling patient: Time with patient: 15 - 25 minutes SUPERVISOR THROWING DEPARTMENT- PN:[place] Post-Op Subjective Date/time seen: 09/14/23 08:23 Interval history: Patient still is refusing to receive blood. The hemoglobin is up over 7 this morning and she appears fairly stable. A Stille fillet this point she would benefit with blood but she is willing to be observed for another day. Until her hemoglobin is an acceptable level would try to avoid hysteroscopic visualization. Exam Const: General: cooperative and comfortable Nutritional Appearance: average body habitus Orientation/consciousness: oriented to person, oriented to place and oriented to time Resp: Effort & Inspection: normal respiratory effort Cardio: Rate: regular rate Rhythm: regular rhythm Heart sounds: S1 normal heart sound present and S2 normal heart sound present GI: Inspection: normal to inspection SUPERVISOR THROWING DEPARTMENT - PN: Obj Data Vital Signs Vital Signs: Vital Signs - 24 hr 09/13/23 08:45 09/13/23 08:47 09/13/23 13:32 Temperature 97.7 F Pulse Rate 82 Respiratory Rate 20 Blood Pressure 108/58 L Pulse Oximetry 99 100 Oxygen Delivery Room Air Room Air 09/13/23 13:35 09/13/23 13:37 09/13/23 13:32 Temperature 97.7 F Pulse Rate 81 84 82 Respiratory Rate 20 Blood Pressure 109/64 104/71 108/58 L Pulse Oximetry 100 100 100 Oxygen Delivery 09/13/23 19:36 09/13/23 19:36 09/13/23 19:37 Temperature 97.8 F Pulse Rate 88 88 94 Respiratory Rate 16 Blood Pressure 103/66 103/66 100/67 Pulse Oximetry 100 Oxygen Delivery 09/13/23 19:38 09/13/23 20:00 09/13/23 20:00 Temperature Pulse Rate 100 100 93 Respiratory Rate 16 Blood Pressure 111/72 Pulse Oximetry 100 Oxygen Delivery Room Air 09/14/23 00:00 09/14/23 04:22 09/14/23 04:00 Temperature 97.6 F Pulse Rate 73 67 64 Respiratory Rate 16 Blood Pressure 100/55 L Pulse Oximetry 100 Oxygen Delivery Intake/Output Intake/Output: Intake & Output 09/11/23 09/12/23 09/13/23 09/14/23 23:59 23:59 23:59 23:59 Intake Total 4215 3640 1560 550 Output Total 1725 2550 Balance 2490 1090 1560 550 Meds/Results Medications: Active Medications Generic Name Dose Route Start Last Admin Trade Name Mehulq PRN Reason Stop Dose Admin Acetaminophen 1,000 mg 09/12/23 14:39 09/12/23 13:30 Acetaminophen 500 Mg Tablet PO 1,000 mg Q6H PRN Administration Headache Docusate Sodium 100 mg 09/11/23 09:00 09/14/23 08:22 Docusate Sodium 100 Mg Capsule PO 100 mg Q12HR TUSHAR Administration Polysaccharide Iron Complex 150 mg 09/11/23 17:00 09/14/23 08:22 Polysaccharide Iron Complex 150 Mg Capsule PO 150 mg BIDWM TUSHAR Administration Radiology Results: ITS Impressions Pelvis Ultrasound 09/11/23 09:21 IMPRESSION: Abnormally prominent central endometrial echo, measuring 2.5 cm or greater AP dimension, likely due to retained products of conception Labs 09/14/23 04:13 09/11/23 02:16 Labs: Laboratory Results - last 24 hr 09/14/23 04:13 WBC 9.4 RBC 2.61 L Hgb 7.2 L Hct 25.3 L MCV 96.9 MCH 27.6 MCHC 28.5 L RDW 15.6 H Plt Count 576 H MPV 9.8 Immature Gran % (Auto) 1.4 H Neut % (Auto) 59.4 Lymph % (Auto) 24.3 [place] % (Auto) 7.7 Eos % (Auto) 6.6 H Baso % (Auto) 0.6 Lymph # (Auto) 2.29 [place] # (Auto) 0.7 H Eos # (Auto) 0.6 H Baso # (Auto) 0.1 Abs Immat Gran (auto) 0.13 H Absolute Neuts (auto) 5.6 Absolute Nucleated RBC 0.1 H Nucleated RBC % 0.5 H
--- NOTE | 2023-09-14 11:16 | PM.IMPN ---
Progress Note: A&P Assessment and Plan (1) Symptomatic anemia: Code(s): D64.9 - Anemia, unspecified Status: Acute (2) Iron deficiency: Code(s): E61.1 - Iron deficiency Status: Acute (3) bleeding: Code(s): O72.1 - Other immediate hemorrhage Status: Acute Plan bleeding/Anemia -Hgb 5.5 POA/6.3 09/13/2023/7.2 09/14/2023 improving -Pelvic US with 2.5 cm retained clot or placenta -OB admitting -recommend blood transfusion patient currently refusing due to latter-day beliefs -hematology following -TXA treament x 2 -soft BP monitor for symptomatic hypotension -Intervention on hold due to severe increased bleeding risk and PT current refusal of transfusion -Iron supplements BID Time Spent With Patient Time with patient: less than 15 minutes Subjective Date/time seen: 09/14/23 11:16 Interval history: HPI Data of Consult Date/Time: 09/12/23? 23:00 Requesting Physician: Jeff Bey MD Consult Narrative Reason for consult: Medical management. Narrative: This is a previously healthy 38-year-old female admitted to the emergency department yesterday for anemia whom the hospitalist service has been consulted for medical management. The patient provides the following history. She is about 3 weeks out from a vaginal delivery and less than 1 week ago she had a suction dilation and curettage for retained placenta. She presented to the ED early yesterday morning with heavy vaginal bleeding and lightheadedness at which time she was found to have profound anemia with a hemoglobin and hematocrit of 5.5 and 19.2% respectively. She was admitted and was seen by her property claims adjuster. Ultrasound showed a 2.5 cm area which may be retained placenta or clot however hysteroscopy with dilation and curratage poses a bleeding risk which at this time is not being pursued given her anemia and refusal of blood transfusion. She has thus far received TXA, an iron infusion, and she has been started on p.o. iron supplementation. At the time my evaluation she is resting comfortably. She has some mild shortness of breath with activity. She denies lightheadedness, dizziness, syncope, near syncope, and sensations of racing heart. Her bleeding has slowed down significantly. Appetite has been okay and she denies nausea and vomiting. 09/13/2023: Patient Hgb mildly improved to 6.3 today however she continues bleeding and reported clots this am. Patient reports headache denies dizziness. BP is soft will need to monitor closely for symptomatic hypotension. Patient still at this time does not want blood transfusion due to latter-day beliefs explained the risks as well as explained findings on ultrasound intervention on hold due to current concerns and bleeding risks. Continue Iron supplements per OB TXA will be given again. 09/14/2023: Patient with no complaints and feeling overall better. Hgb 7.2 today trending up appears hemodynamically stable. Requesting F/U pelvis ultrasound defer to OBGYN. Plan is for overnight monitoring of blood counts Review of Systems Review of Systems: Twelve systems were reviewed and are negative except for as per HPI. All systems reviewed & are unremarkable except as noted in HPI and below Exam Narrative: Physical Exam: - GENERAL: Alert and oriented x 3. No acute distress. Well-nourished. - EYES: EOMI. No scleral icterus. PERRLA. - HENT: Moist mucous membranes. No cervical lymphadenopathy. - LUNGS: Clear to auscultation bilaterally. No accessory muscle use. - CARDIOVASCULAR: Regular rate and rhythm. No murmur. No JVD. S1-S2 - ABDOMEN: Soft, non-tender and non-distended. No palpable masses. - EXTREMITIES: No edema. Non-tender -SKIN: No rashes or lesions. Skin warm, dry. - NEUROLOGIC: No focal neurological deficits. CN II-XII grossly intact - PSYCHIATRIC: Appropriate mood and affect. Good judgement and insight. No visual or auditory hallucinations. No suicidal or maxine
[2023-09-15 05:45] LABS: Hematocrit 26.3 % (37.0-47.0); Hemoglobin 7.6 g/dL (12.0-15.0); Mean Corpuscular HGB Conc 28.9 g/dl (32-36); Mean Corpuscular Hemoglobin 27.7 pg (26-34); Mean Platelet Volume 9.6 fl (7.4-10.4); Platelet Count Result 563 k/mm3 (150-375); Red Blood Count 2.74 M/mm3 (4.2-5.4); Red Cell Distribution Width 16.8 % (11.5-14.5); White Blood Count 9.1 K/mm3 (4.5-10.0)
[2023-09-15 06:00] VITALS: BP 109/69; PULSE 84; RESP 18; TEMP 36.7; O2SAT 100
--- NOTE | 2023-09-15 06:57 | P.DS_ITS ---
DS: Admitting Diagnosis Discharge Date 09/15/23 Admitting Diagnosis bleeding and anemia DS: Discharge Diagnosis Discharge Diagnosis (1) Iron deficiency: Code(s): E61.1 - Iron deficiency Status: Acute (2) Symptomatic anemia: Code(s): D64.9 - Anemia, unspecified Status: Acute (3) bleeding: Code(s): O72.1 - Other immediate hemorrhage Status: Acute DS: Summary Hospital Course Reason for hospitalization: Patient was admitted through the ER with bleeding. She was noted to be anemic was watched. Her hemoglobin dropped down to 5.5 however she refused blood transfusion based on spiritism and/or reasons. She was given IV iron was seen by both Hematology and web coordinator. She was begun on iron and she has slowly increased her hemoglobin. Ultrasound did show a 2.5cm clot versus portion placenta however bleeding has been stable and due to her lack of blood replacement the been hesitant to do hysteroscopy. She is discharged home today on transaminase gas had and follow-up in a week when she will have an ultrasound and a repeat H and H Hospital Course: See above Time Spent with Patient Time attestation: Total time spent providing and/or coordinating discharge services: Exam Const: General: cooperative, healthy appearing and comfortable Nutritional Appearance: average body habitus Orientation/consciousness: oriented to person, oriented to place and oriented to time Resp: Effort & Inspection: normal respiratory effort DS: Data Data Completed and Pending Labs on day of discharge: Labs from last 24 hours 09/15/23 09/11/23 05:15 02:15 WBC 9.1 RBC 2.74 L Hgb 7.6 L Hct 26.3 L MCV 96.0 MCH 27.7 MCHC 28.9 L RDW 16.8 H Plt Count 563 H MPV 9.6 Crossmatch See Detail Discharge Plan Discharge Attending physician on discharge: Romie Pemberton Consulting providers: Romie Pemberton; Mireya Vega Phillip Discharging Clinician: Romie Pemberton Patient Disposition: Home, Self-Care Activity: may shower, no driving and pelvic rest Diet: heart healthy Discharge Instructions: Patient was given office information to follow with an appointment at the [facility] [id number] [address] [place] upon discharge. Please call our office number ([phone]) to make a follow up appointment for worsening post anemia. Patient Instructions: Antibiotic Form Stand Alone Forms: General Discharge Information Follow-up/Referrals: Romie Pemberton MD [Physician] - Discharge Medications: New tranexamic acid 650 mg tablet 650 mg PO Q8H Qty: 30 0RF Continued ferrous sulfate 325 mg (65 mg iron) Tablet 325 mg PO DAILY vitamin B complex [B Complex-Vitamin B12] Tablet 1 tablet PO DAILY Date of admission: 09/13/23 15:55 Primary Care Provider: Tre Parekh Admitting Provider: Jeff Bey Attending physician on admission: Jeff Bey Condition: Stable
--- NOTE | 2023-09-15 07:00 | PM.GYNPNOP ---
SCOURER - A/P Time Spent With Patient Time: Total time spent is greater than 50% in coordination of care (as documented) at patient's floor/unit and/or counseling patient: Time with patient: 15 - 25 minutes SCOURER- PN:[place] Post-Op Subjective Date/time seen: 09/15/23 07:00 Interval history: HPI Data of Consult Date/Time: 09/12/23? 23:00 Requesting Physician: Jeff Bey MD Consult Narrative Reason for consult: Medical management. Narrative: This is a previously healthy 38-year-old female admitted to the emergency department yesterday for anemia whom the hospitalist service has been consulted for medical management. The patient provides the following history. She is about 3 weeks out from a vaginal delivery and less than 1 week ago she had a suction dilation and curettage for retained placenta. She presented to the ED early yesterday morning with heavy vaginal bleeding and lightheadedness at which time she was found to have profound anemia with a hemoglobin and hematocrit of 5.5 and 19.2% respectively. She was admitted and was seen by her fitter hand. Ultrasound showed a 2.5 cm area which may be retained placenta or clot however hysteroscopy with dilation and curratage poses a bleeding risk which at this time is not being pursued given her anemia and refusal of blood transfusion. She has thus far received TXA, an iron infusion, and she has been started on p.o. iron supplementation. At the time my evaluation she is resting comfortably. She has some mild shortness of breath with activity. She denies lightheadedness, dizziness, syncope, near syncope, and sensations of racing heart. Her bleeding has slowed down significantly. Appetite has been okay and she denies nausea and vomiting. 09/13/2023: Patient Hgb mildly improved to 6.3 today however she continues bleeding and reported clots this am. Patient reports headache denies dizziness. BP is soft will need to monitor closely for symptomatic hypotension. Patient still at this time does not want blood transfusion due to taoism beliefs explained the risks as well as explained findings on ultrasound intervention on hold due to current concerns and bleeding risks. Continue Iron supplements per OB TXA will be given again. 09/14/2023: Patient with no complaints and feeling overall better. Hgb 7.2 today trending up appears hemodynamically stable. Requesting F/U pelvis ultrasound defer to OBGYN. Plan is for overnight monitoring of blood counts SCOURER - PN: Obj Data Vital Signs Vital Signs: Vital Signs - 24 hr 09/14/23 08:20 09/14/23 08:00 09/14/23 08:00 Temperature Pulse Rate 78 79 Respiratory Rate Blood Pressure 104/57 L Pulse Oximetry Oxygen Delivery Room Air 09/14/23 09:26 09/14/23 09:26 09/14/23 13:26 Temperature 97.0 F L Pulse Rate 90 89 96 Respiratory Rate 18 Blood Pressure 104/67 103/66 101/64 Pulse Oximetry 100 Oxygen Delivery 09/14/23 20:00 09/14/23 20:20 09/14/23 20:21 Temperature 98.1 F 98.5 F 98.0 F Pulse Rate 90 86 98 Respiratory Rate 18 18 18 Blood Pressure 112/70 101/72 95/82 L Pulse Oximetry 100 100 100 Oxygen Delivery 09/14/23 20:00 09/14/23 22:00 09/15/23 06:00 Temperature 97.8 F 98.1 F Pulse Rate 86 84 Respiratory Rate 18 18 Blood Pressure 103/66 109/69 Pulse Oximetry 100 99 100 Oxygen Delivery Room Air Intake/Output Intake/Output: Intake & Output 09/12/23 09/13/23 09/14/23 09/15/23 23:59 23:59 23:59 23:59 Intake Total 3640 1560 1820 Output Total 2550 Balance 1090 1560 1820 Meds/Results Medications: Active Medications Generic Name Dose Route Start Last Admin Trade Name Freq PRN Reason Stop Dose Admin Acetaminophen 1,000 mg 09/12/23 14:39 09/12/23 13:30 Acetaminophen 500 Mg Tablet PO 1,000 mg Q6H PRN Administration Headache Docusate Sodium 100 mg 09/11/23 09:00 09/14/23 20:19 Docusate Sodium 100 Mg Capsule PO 100 mg Q12HR TUSHAR Administration Polysacchar
--- NOTE | 2023-09-15 07:00 | PM.GYNPNOP ---
MATERIAL CHECKER - A/P Time Spent With Patient Time: Total time spent is greater than 50% in coordination of care (as documented) at patient's floor/unit and/or counseling patient: MATERIAL CHECKER- PN:[place] Post-Op Subjective Date/time seen: 09/15/23 07:00 Interval history: HPI Data of Consult Date/Time: 09/12/23? 23:00 Requesting Physician: Jeff Bey MD Consult Narrative Reason for consult: Medical management. Narrative: This is a previously healthy 38-year-old female admitted to the emergency department yesterday for anemia whom the hospitalist service has been consulted for medical management. The patient provides the following history. She is about 3 weeks out from a vaginal delivery and less than 1 week ago she had a suction dilation and curettage for retained placenta. She presented to the ED early yesterday morning with heavy vaginal bleeding and lightheadedness at which time she was found to have profound anemia with a hemoglobin and hematocrit of 5.5 and 19.2% respectively. She was admitted and was seen by her physical therapy aides teacher. Ultrasound showed a 2.5 cm area which may be retained placenta or clot however hysteroscopy with dilation and curratage poses a bleeding risk which at this time is not being pursued given her anemia and refusal of blood transfusion. She has thus far received TXA, an iron infusion, and she has been started on p.o. iron supplementation. At the time my evaluation she is resting comfortably. She has some mild shortness of breath with activity. She denies lightheadedness, dizziness, syncope, near syncope, and sensations of racing heart. Her bleeding has slowed down significantly. Appetite has been okay and she denies nausea and vomiting. 09/13/2023: Patient Hgb mildly improved to 6.3 today however she continues bleeding and reported clots this am. Patient reports headache denies dizziness. BP is soft will need to monitor closely for symptomatic hypotension. Patient still at this time does not want blood transfusion due to spiritism beliefs explained the risks as well as explained findings on ultrasound intervention on hold due to current concerns and bleeding risks. Continue Iron supplements per OB TXA will be given again. 09/14/2023: Patient with no complaints and feeling overall better. Hgb 7.2 today trending up appears hemodynamically stable. Requesting F/U pelvis ultrasound defer to OBGYN. Plan is for overnight monitoring of blood counts MATERIAL CHECKER - PN: Obj Data Vital Signs Vital Signs: Vital Signs - 24 hr 09/14/23 08:20 09/14/23 08:00 09/14/23 08:00 Temperature Pulse Rate 78 79 Respiratory Rate Blood Pressure 104/57 L Pulse Oximetry Oxygen Delivery Room Air 09/14/23 09:26 09/14/23 09:26 09/14/23 13:26 Temperature 97.0 F L Pulse Rate 90 89 96 Respiratory Rate 18 Blood Pressure 104/67 103/66 101/64 Pulse Oximetry 100 Oxygen Delivery 09/14/23 20:00 09/14/23 20:20 09/14/23 20:21 Temperature 98.1 F 98.5 F 98.0 F Pulse Rate 90 86 98 Respiratory Rate 18 18 18 Blood Pressure 112/70 101/72 95/82 L Pulse Oximetry 100 100 100 Oxygen Delivery 09/14/23 20:00 09/14/23 22:00 09/15/23 06:00 Temperature 97.8 F 98.1 F Pulse Rate 86 84 Respiratory Rate 18 18 Blood Pressure 103/66 109/69 Pulse Oximetry 100 99 100 Oxygen Delivery Room Air Intake/Output Intake/Output: Intake & Output 09/12/23 09/13/23 09/14/23 09/15/23 23:59 23:59 23:59 23:59 Intake Total 3640 1560 1820 Output Total 2550 Balance 1090 1560 1820 Meds/Results Medications: Active Medications Generic Name Dose Route Start Last Admin Trade Name Freq PRN Reason Stop Dose Admin Acetaminophen 1,000 mg 09/12/23 14:39 09/12/23 13:30 Acetaminophen 500 Mg Tablet PO 1,000 mg Q6H PRN Administration Headache Docusate Sodium 100 mg 09/11/23 09:00 09/14/23 20:19 Docusate Sodium 100 Mg Capsule PO 100 mg Q12HR TUSHAR Administration Polysaccharide Iron Complex 150 mg 09/11/23 1
--- NOTE | 2023-09-15 07:01 | PM.OBPNVD ---
OB - PN: Subj Subjective Date/time seen: 09/15/23 07:01 Interval history: Bleeding has been stable and hemoglobin is now 7.6 patient is agreeable to go home to follow-up in a week with repeat H&H and ultrasound at that time bleeding precautions were given she will go home on trans and casted 650 2 3 times a day Patient comments: no complaints OB - PN: Obj Data Labs 09/15/23 05:15 09/11/23 02:16 Labs: Laboratory Results - last 24 hr 09/11/23 09/15/23 02:15 05:15 WBC 9.1 RBC 2.74 L Hgb 7.6 L Hct 26.3 L MCV 96.0 MCH 27.7 MCHC 28.9 L RDW 16.8 H Plt Count 563 H MPV 9.6 Crossmatch See Detail OB - PN A/P Time Spent With Patient Time: Total time spent is greater than 50% in coordination of care (as documented) at patient's floor/unit and/or counseling patient:
[2023-09-15] MEDS: POLYSACCHARIDE IRON COMPLEX 150 MG CAPSULE PO (08:21)
[2023-09-15] MEDS: DOCUSATE SODIUM 100 MG CAPSULE PO (08:22)
[2023-09-15 23:46] LABS: Methylmalonic Acid 102 nmol/L (87-318)
[2023-09-16 06:27] LABS: Haptoglobin 249 mg/dL (43-212)
[2023-09-23 16:39] LABS: Soluble Transferrin Receptor 2.89 mg/L (0.76-1.76)
== END 2023-09-15 10:45 | disposition home or self-care (01) | DRG 776 ==
LOC: ANHED 03:58 → ANHOB2 04:22 → ANH2MED 09-12 16:05
PROVIDERS: Nurse Practitioner Family; Admitting Provider Obstetrics & Gynecology; Emergency Provider Emergency Medicine; Visit Provider Obstetrics & Gynecology
DX: O72.2 Delayed and secondary postpartum hemorrhage (principal); D50.0 Iron deficiency anemia secondary to blood loss (chronic); O90.81 Anemia of the puerperium; Z53.1 Procedure and treatment not carried out because of patient's decision for reasons of belief and group pressure
CPT/HCPCS: 36415; 76856; 80053; 82607; 82728; 82746; 83010; 83540; 83550; 83615; 83921; 84238; 84702; 85014; 85018; 85025; 85027; 85046; 85384; 85610; 85730; 86850; 86880; 86900; 86901; 86923; 96361; 96365; 96366; 96375; 99285; A9270; G0378; J1756; J7030; J7050